=== PATIENT | female | born 1945 | race Caucasian/White ===

== ENCOUNTER 2017-06-24 17:22 | Inpatient (IN) | payer OTHER ==
[~2017-06-24] VITALS: Ht 157.5 cm; Wt 76.6 kg
[2017-06-24] MEDS ORDERED: SODIUM CHLORIDE 0.9% 1000ML 1,000 ML IV ONE (17:30)
[2017-06-24 17:48] LABS: HEMATOCRIT 38.7 % (37-47); HEMOGLOBIN 12.6 g/dL (12.0-16.0); MEAN CELL VOLUME 95.6 fL (80-100); MEAN CORPUSCULAR HEMOGLOBIN 31.1 pg (25-34); MEAN CORPUSCULAR HGB CONC 32.6 g/dl (32-36); MEAN PLATELET VOLUME 10.1 fL (7.4-10.4); PLATELET COUNT 168 K/uL (130-400); RED CELL DISTRIBUTION WIDTH CV 14.6 % (11.5-14.5); RED CELL DISTRIBUTION WIDTH SD 50.9 fL (36.4-46.3); WHITE BLOOD COUNT 9.88 K/uL (4.8-10.8)
--- NOTE | 2017-06-24 17:50 | EMERGENCY ROOM VISIT NOTE ---
History Report prepared by Shalini: Karol Morgan Under the Supervision of: Dr. Dewayne García D.O. First contact with patient: 17:24 Stated Complaint: FEVER/UTI/SEIZURE /[facility] History of Present Illness The patient is a 71 year old female who presents to the Emergency Room with complaints of persistent general fever since this morning. Per nursing staff, the patient had a fever of 101.8 Fahrenheit and her heart rate was 132 while at [facility]. She has not been given medication for the fever. Per , the patient was fine two weeks ago while on vacation in [place]. Per son, the patient used a wheelchair to prevent ambulating for too long. Per , the patient was lying in bed all day six days ago and when he was asking questions, she seemed confused. The patient was then taken to [facility] for evaluation of a possible stroke after a fall and confusion. She was then transferred to [facility] for further evaluation. While there, the patient was diagnosed with a UTI and possible complex partial seizures. She was treated with IV antibiotics. Per son, the patient was discharged to [facility] , though seemed more normal. She was able to maintain a conversation. The son then reports that he called the patient today and she did not seem to make any sense over the phone. The patient reports neck pain, though denies any abdominal pain or other pain. She notes weakness in both legs. She notes that she fell six days ago on her tailbone. She denies any similar symptoms in the past. Source of History: patient Onset: since this morning Position: other (general ) Symptom Intensity: 101.8 Fahrenheit Quality: other (fever) Timing: other (persistent) Associated Symptoms: + neck pain, + weakness (bilateral leg), No abdominal pain Note: Notes confusion. Review of Systems See HPI for pertinent positives & negatives. A total of 10 systems reviewed and were otherwise negative. Past Medical & Surgical Medical Problems: (1) Myocardial infarct Surgical Problems: (1) H/O: hysterectomy (2) History of cholecystectomy Family History Diabetes mellitus Social History Smoking Status: Never Smoker Smokeless Tobacco Use: No Alcohol Use: none Drug Use: none Marital Status: Housing Status: lives with significant other Occupation Status: unemployed Current/Historical Medications Scheduled Atorvastatin (Lipitor), 40 MG PO DAILY Cefpodoxime Proxetil (Cefpodoxime Proxetil), 100 MG PO Q12 Cholecalciferol (Vitamin D), 2,000 INTER.UNIT PO DAILY Clopidogrel (Plavix), 75 MG PO DAILY Cyanocobalamin (Vitamin B12), 1,000 MCG PO DAILY Docusate Sodium (Docusate Sodium), 100 MG PO BID Fluticasone Propionate (Nasal) (Flonase Allergy Relief), 2 SPRAYS MANDIE DAILY Gabapentin (Neurontin), 200 MG PO Q8 Insulin Aspart (Novolog), 1 DOSE SC ACHS Latanoprost (Xalatan 0.005% Oph Tri), 1 DROP OPB HS Levetiracetam (Keppra), 500 MG PO Q12 Levothyroxine Sodium (Levothyroxine Sodium), 50 MCG PO DAILY Magnesium Oxide (Mag-Ox), 400 MG PO BIDM Metformin Hcl (Glucophage), 1,000 MG PO BIDM Olanzapine (Zyprexa), 20 MG PO HS Pantoprazole (Protonix), 40 MG PO DAILY Pioglitazone (Actos), 45 MG PO DAILY Potassium Chloride (Potassium Chloride Er), 10 MEQ PO QAM Scheduled PRN Acetaminophen (Tylenol), 500 MG PO Q4H PRN for UNDECIDED Bisacodyl (Bisacodyl), 1 SUPP OR DAILY PRN for Constipation Furosemide (Lasix), 20 MG PO DAILY PRN for PRN Magnesium Hydroxide (Milk Of Magnesia), 30 ML PO DAILY PRN for Constipation Nitroglycerin (Nitrostat), 0.4 MG UT UD PRN for Chest Pain Polyethylene Glycol 3350 (Miralax), 17 GM PO DAILY PRN for Constipation Senna/Docusate Sod (Senokot S), 1 TAB PO DAILY PRN for Constipation Sodium Phosphate/Biphosphate (Fleet Enema), 1 EA OR DAILY PRN for Constipation [Ocular Lubricant], 1 DROP OPB TID PRN for Dry Eyes Allergies Coded Allergies: No Known Allergies (Unverified , 06/24/17) Physical Exam Vital Signs Date Time Temp Pulse Resp B/P (MAP) Pulse Ox O2 Delivery O2 Flow Rate FiO2 06/24/17 23:32 38.0 104 19 117/63 94 06/24/17 22:00 104 19 117/63 94 Nasal Cannula 2.0 06/24/17 21:15 108 21 114/64 94 Nasal Cannula 2.0 06/24/17 20:54 110 20 148/97 94 Nasal Cannula 2.0 06/24/17 19:17 116 23 148/97 90 Room Air 06/24/17 17:53 119 06/24/17 17:42 92 Room Air 06/24/17 17:30 38.0 120 18 132/75 94 Room Air Physical Exam GENERAL: Patient is looking around the room, non anxious appearing, slow to respond to questions, but follows commands. EYES: The conjunctivae are clear. The pupils are round and reactive. EARS, NOSE, MOUTH AND THROAT: The nose is without any evidence of any deformity. Mucous membranes are dry tongue is midline NECK: The neck is nontender and supple. RESPIRATORY: Scattered rhonchi throughout. CARDIOVASCULAR: Tachycardic rate and regular rhythm noted. No definite murmur noted to auscultation. GASTROINTESTINAL: The abdomen is soft. Bowel sounds are present in all quadrants. Abdomen is nontender PELVIS: The Pelvis is stable. No tenderness to palpation is noted. BACK: No midline tenderness or or step-off noted range of motion in flexion extension as well as rotation no signs of muscle spasm noted MUSCULOSKELETAL/EXTREMITIES: There is no evidence of gross deformity full range of motion is noted in the hips and shoulders SKIN: Pedal edema bilaterally, skin was warm and dry. NEUROLOGIC: Patient is slowly answers questions and follows commands. Strength is symmetric, but diminished bilaterally. Medical Decision & Procedures ER Provider Diagnostic Interpretation: Radiology results as stated below per my review and radiologist interpretation: HEAD WITHOUT CONTRAST (CT) CLINICAL HISTORY: 71 years-old Female presenting with possible seizure. TECHNIQUE: Multidetector CT imaging of the head was performed without the use of intravenous contrast. IV contrast: None. A dose lowering technique was used consistent with the principles of ALARA (as low as reasonably achievable). COMPARISON: None. CT DOSE (mGy.cm): The estimated cumulative dose is 638.56 mGycm. FINDINGS: Flight Test Data Acquisition Technician topogram: Unremarkable. Ventricles and sulci normal in size. Brain parenchyma normal in appearance with preserved hernandes-white differentiation. No mass effect or midline shift. No hemorrhage or acute territorial infarct. No extra-axial fluid collection. Paranasal sinuses and mastoid air cells clear. Calvarium intact. IMPRESSION: 1. No acute intracranial abnormality. Electronically signed by: Jose Manuel Cornejo M.D. 06/24/2017 6:36 PM Dictated Date/Time: 06/24/2017 6:34 PM CHEST ONE VIEW PORTABLE CLINICAL HISTORY: 71 years-old Female presenting with Sepsis. TECHNIQUE: Portable upright AP view of the chest was obtained. COMPARISON: None. FINDINGS: Atherosclerosis of the aortic arch. Cardiac silhouette normal in size. Mildly low lung volumes with hypoventilatory changes. Minimal bandlike opacities at the lung bases. No large pleural effusion or pneumothorax. Osseous structures normal. Cholecystectomy clips noted. IMPRESSION: 1. Mildly low lung volumes with hypoventilatory changes. No convincing evidence of a focal infiltrate to suggest pneumonia. Electronically signed by: Jose Manuel Cornejo M.D. 06/24/2017 5:53 PM Dictated Date/Time: 06/24/2017 5:52 PM Laboratory Results 06/24/17 17:08 Red Blood Count 4.05, Mean Corpuscular Volume 95.6, Mean Corpuscular Hemoglobin 31.1, Mean Corpuscular Hemoglobin Concent 32.6, Mean Platelet Volume 10.1, Neutrophils (%) (Auto) 85.6, Lymphocytes (%) (Auto) 7.4, Monocytes (%) (Auto) 6.7, Eosinophils (%) (Auto) 0.0, Basophils (%) (Auto) 0.1, Neutrophils # (Auto) 8.46, Lymphocytes # (Auto) 0.73, Monocytes # (Auto) 0.66, Eosinophils # (Auto) 0.00, Basophils # (Auto) 0.01 06/24/17 17:08 Test 06/24/17 17:08 06/24/17 18:15 06/24/17 19:32 White Blood Count 9.88 K/uL (4.8-10.8) Red Blood Count 4.05 M/uL (4.2-5.4) Hemoglobin 12.6 g/dL (12.0-16.0) Hematocrit 38.7 % (37-47) Mean Corpuscular Volume 95.6 fL (80-100) Mean Corpuscular Hemoglobin 31.1 pg (25-34) Mean Corpuscular Hemoglobin Concent 32.6 g/dl (32-36) Platelet Count 168 K/uL (130-400) Mean Platelet Volume 10.1 fL (7.4-10.4) Neutrophils (%) (Auto) 85.6 % Lymphocytes (%) (Auto) 7.4 % Monocytes (%) (Auto) 6.7 % Eosinophils (%) (Auto) 0.0 % Basophils (%) (Auto) 0.1 % Neutrophils # (Auto) 8.46 K/uL (1.4-6.5) Lymphocytes # (Auto) 0.73 K/uL (1.2-3.4) Monocytes # (Auto) 0.66 K/uL (0.11-0.59) Eosinophils # (Auto) 0.00 K/uL (0-0.5) Basophils # (Auto) 0.01 K/uL (0-0.2) RDW Standard Deviation 50.9 fL (36.4-46.3) RDW Coefficient of Variation 14.6 % (11.5-14.5) Immature Granulocyte % (Auto) 0.2 % Immature Granulocyte # (Auto) 0.02 K/uL (0.00-0.02) Red Blood Cell Morphology Unremarkable Erythrocyte Sedimentation Rate 41 mm/hr (0-21) Prothrombin Time 11.4 SECONDS (9.0-12.0) Prothromb Time International Ratio 1.1 (0.9-1.1) Activated Partial Thromboplast Time 25.4 SECONDS (21.0-31.0) Partial Thromboplastin Ratio 1.0 Anion Gap 10.0 mmol/L (3-11) Est Creatinine Clear Calc Drug Dose 37.6 ml/min Estimated GFR () 46.8 Estimated GFR (Non- 40.4 BUN/Creatinine Ratio 26.0 (10-20) Calcium Level 9.6 mg/dl (8.5-10.1) Phosphorus Level 2.4 mg/dl (2.5-4.9) Magnesium Level 1.7 mg/dl (1.8-2.4) Total Bilirubin 1.3 mg/dl (0.2-1) Aspartate Amino Transf (AST/SGOT) 103 U/L (15-37) Alanine Aminotransferase (ALT/SGPT) 72 U/L (12-78) Alkaline Phosphatase 211 U/L (45-117) Total Creatine Kinase 174 U/L (26-192) Creatine Kinase MB 2.8 ng/ml (0.5-3.6) Creatine Kinase MB Ratio 1.6 (0-3.0) Troponin I < 0.015 ng/ml (0-0.045) C-Reactive Protein 4.24 mg/dl (0-0.29) Pro-B-Type Natriuretic Peptide 271 pg/ml (0-900) Total Protein 8.5 gm/dl (6.4-8.2) Albumin 3.7 gm/dl (3.4-5.0) Globulin 4.8 gm/dl (2.5-4.0) Albumin/Globulin Ratio 0.8 (0.9-2) Lipase 93 U/L (73-393) Thyroid Stimulating Hormone (TSH) 0.488 uIu/ml (0.300-4.500) Thyroxine (T4) 9.7 mcg/dl (4.5-10.9) Prolactin 22.93 ng/mL Urine Color YELLOW Urine Appearance CLEAR (CLEAR) Urine pH 5.0 (4.5-7.5) Urine Specific [place] 1.019 (1.000-1.030) Urine Protein NEG (NEG) Urine Glucose (UA) NEG (NEG) Urine Ketones NEG (NEG) Urine Occult Blood NEG (NEG) Urine Nitrite NEG (NEG) Urine Bilirubin NEG (NEG) Urine Urobilinogen NEG (NEG) Urine Leukocyte Esterase NEG (NEG) Urine WBC (Auto) 0 /hpf (0-5) Urine RBC (Auto) 0-4 /hpf (0-4) Urine Hyaline Casts (Auto) 0 /lpf (0-5) Urine Epithelial Cells (Auto) 0-5 /lpf (0-5) Urine Bacteria (Auto) NEG (NEG) Venous Blood pH 7.45 (7.36-7.41) Venous Blood Partial Pressure CO2 38 mmHg (38.0-50.0) Venous Blood Partial Pressure O2 32 mmHg Venous Blood HCO3 25 mmol/L Venous Blood Oxygen Saturation < 60.0 % Venous Blood Base Excess 1.5 mEq/L Laboratory results per my review. Medications Administered Medications (Trade) Dose Ordered Sig/Oneyda Route Start Time Stop Time Status Last Admin Dose Admin Sodium Chloride 1,000 ml @ 999 mls/hr Q1H1M ONCE IV 06/24/17 17:30 06/24/17 18:30 DC 06/24/17 18:16 999 MLS/HR Magnesium Sulfate (Magnesium Sulfate) 2 gm NOW STAT IV 06/24/17 18:35 06/24/17 18:36 DC 06/24/17 20:04 2 GM ECG Per My Interpretation Indication: other (fever) Rate (beats per minute): 121 Rhythm: sinus tachycardia Findings: Q waves (Inferior), no ectopy (no PVC) Comparison ECG Date: no prior available ED Course 1730: The patient was evaluated in room A3. A complete history and physical examination were performed. 1729: Ordered NSS 1,000 ml @ 999 mls/hr IV 1834: Ordered Magnesium Sulfate 2 gm IV 1920: I spoke with Dr. Heredia, [facility] hospitalist. We discussed the patient's case. The patient will be evaluated by the [facility] for further management. 1924: I reassessed the patient at this time. I discussed the results and treatment plan with the patient and her family. I answered all pertaining questions that they had. They expressed understanding and verbalized agreement. The patient will be further evaluated. Medical Decision Prior records/ancillary studies reviewed. Triage Nursing notes reviewed. The patient's history was concerning for fever. Differential diagnosis: Etiologies such as viral syndrome, otitis, pharyngitis, pneumonia, influenza, meningitis, urinary tract infection, sepsis, bacteremia, as well as others were entertained. The patient is a 71-year-old female who presented to the emergency department for an evaluation of altered mental status. Additional history is obtained from the patient's family members. The patient is at a rehab after she was discharged from a [facility]. The patient was initially seen at [facility] and transferred to [place] for possible seizure. The patient's been experiencing worsening weakness. She was sent to the emergency department this evening for fever and altered mental status and possible seizure. The patient's family members give most of the history. They do state that the patient was able to hold a conversation and ambulate with some difficulty earlier but this appears to be a significant change from her baseline. I discussed patient's laboratory and radiographic studies with her family. She was treated with IV fluids and IV magnesium. Because of the degree of her symptoms I discussed her case with the on-call [facility] hospitalist. They have agreed to evaluate the patient in the emergency department for further management and disposition. Medication Reconcilliation Current Medication List: was personally reviewed by me Blood Pressure Screening Patient's blood pressure: Elevated blood pressure referred to hospitalist Consults Time Called: 1920 Consulting Physician[facility] I spoke with [facility] hospitalist. We discussed the patient's case. The patient will be evaluated by the [facility] for further management. Impression Primary Impression: Altered mental status Additional Impressions: Seizure Fever Weakness Hypomagnesemia Scribe Attestation The scribe's documentation has been prepared under my direction and personally reviewed by me in its entirety. I confirm that the note above accurately reflects all work, treatment, procedures, and medical decision making performed by me. Departure Information Dispostion Being Evaluated By Hospitalist Problem Qualifiers Primary Impression: Altered mental status Altered mental status type: unspecified Qualified Codes: R41.82 - Altered mental status, unspecified Additional Impressions: Fever Fever type: unspecified Qualified Codes: R50.9 - Fever, unspecified
--- NOTE | 2017-06-24 17:55 | DIAGNOSTIC IMAGING REPORT ---
CHEST ONE VIEW PORTABLE CLINICAL HISTORY: 71 years-old Female presenting with Sepsis. TECHNIQUE: Portable upright AP view of the chest was obtained. COMPARISON: None. FINDINGS: Atherosclerosis of the aortic arch. Cardiac silhouette normal in size. Mildly low lung volumes with hypoventilatory changes. Minimal bandlike opacities at the lung bases. No large pleural effusion or pneumothorax. Osseous structures normal. Cholecystectomy clips noted. IMPRESSION: 1. Mildly low lung volumes with hypoventilatory changes. No convincing evidence of a focal infiltrate to suggest pneumonia. Electronically signed by: Jose Manuel Cornejo M.D. 06/24/2017 5:53 PM Dictated Date/Time: 06/24/2017 5:52 PM
[2017-06-24 18:09] LABS: INR 1.1 (0.9-1.1); PTT PATIENT 25.4 SECONDS (21.0-31.0)
[2017-06-24 18:16] LABS: ALBUMIN 3.7 gm/dl (3.4-5.0); ALT/SGPT 72 U/L (12-78); AST/SGOT 103 U/L (15-37); BLOOD UREA NITROGEN 35 mg/dl (7-18); CALCIUM 9.6 mg/dl (8.5-10.1); CARBON DIOXIDE 23 mmol/L (21-32); CREATININE 1.33 mg/dl (0.60-1.20); GLUCOSE 169 mg/dl (70-99); LIPASE 93 U/L (73-393); POTASSIUM 3.6 mmol/L (3.5-5.1); SODIUM 137 mmol/L (136-145)
[2017-06-24 18:22] LABS: ALKALINE PHOSPHATASE 211 U/L (45-117); CKMB 2.8 ng/ml (0.5-3.6); PHOSPHORUS 2.4 mg/dl (2.5-4.9); TOTAL PROTEIN 8.5 gm/dl (6.4-8.2)
[2017-06-24 18:34] LABS: BASO % 0.1 %; BASO ABS # 0.01 K/uL (0-0.2); IG# 0.02 K/uL (0.00-0.02); LYMPH % 7.4 %; LYMPH ABS # 0.73 K/uL (1.2-3.4); MONO % 6.7 %; MONO ABS # 0.66 K/uL (0.11-0.59); NEUT % 85.6 %; NEUT ABS # 8.46 K/uL (1.4-6.5)
[2017-06-24] MEDS ORDERED: MAGNESIUM SULFATE 1GM / D5W 1 GM BAG IV STA (18:35)
--- NOTE | 2017-06-24 18:37 | DIAGNOSTIC IMAGING REPORT ---
HEAD WITHOUT CONTRAST (CT) CLINICAL HISTORY: 71 years-old Female presenting with possible seizure. TECHNIQUE: Multidetector CT imaging of the head was performed without the use of intravenous contrast. IV contrast: None. A dose lowering technique was used consistent with the principles of ALARA (as low as reasonably achievable). COMPARISON: None. CT DOSE (mGy.cm): The estimated cumulative dose is 638.56 mGycm. FINDINGS: Brush Worker topogram: Unremarkable. Ventricles and sulci normal in size. Brain parenchyma normal in appearance with preserved hernandes-white differentiation. No mass effect or midline shift. No hemorrhage or acute territorial infarct. No extra-axial fluid collection. Paranasal sinuses and mastoid air cells clear. Calvarium intact. IMPRESSION: 1. No acute intracranial abnormality. Electronically signed by: Jose Manuel Cornejo M.D. 06/24/2017 6:36 PM Dictated Date/Time: 06/24/2017 6:34 PM
[2017-06-24] MEDS ORDERED: FURO-85 PO (19:34)
[2017-06-24] MEDS ORDERED: LATA0.009 OPB (19:34)
[2017-06-24] MEDS ORDERED: LEVO50TA6 PO (19:34)
[2017-06-24] MEDS ORDERED: LEVE500T13 PO (19:34)
[2017-06-24] MEDS ORDERED: MAGN400T6 PO (19:34)
[2017-06-24] MEDS ORDERED: GABA100C13 PO (19:34)
[2017-06-24] MEDS ORDERED: CLOP1TAB15 PO (19:34)
[2017-06-24] MEDS ORDERED: CYAN100020 PO (19:34)
[2017-06-24] MEDS ORDERED: FLUT0.15 NAE (19:34)
[2017-06-24] MEDS ORDERED: ATOR-24 PO (19:34)
[2017-06-24] MEDS ORDERED: CHOL20009 PO (19:34)
[2017-06-24] MEDS ORDERED: ACT15 PO (19:34)
[2017-06-24] MEDS ORDERED: METF-384 PO (19:41)
[2017-06-24] MEDS ORDERED: PANT40TA PO (19:41)
[2017-06-24] MEDS ORDERED: OLAN1TAB9 PO (19:41)
[2017-06-24] MEDS ORDERED: NTRGSL/4 UT (19:41)
[2017-06-24] MEDS ORDERED: DOCU100C31 PO (19:44)
[2017-06-24] MEDS ORDERED: POTA-74 PO (19:44)
[2017-06-24] MEDS ORDERED: MOML PO (19:44)
[2017-06-24] MEDS ORDERED: BISA10SU5 PR (19:44)
[2017-06-24] MEDS ORDERED: SODIENE PR (19:50)
[2017-06-24] MEDS ORDERED: POLY335019 PO (19:50)
[2017-06-24] MEDS ORDERED: SENN-65 PO (19:50)
[2017-06-24] MEDS ORDERED: CEFP100T7 PO (19:50)
[2017-06-24] MEDS ORDERED: ACET-1256 PO (19:50)
[2017-06-24] MEDS ORDERED: OCULAR LUBRICANT OPB (19:50)
[2017-06-24] MEDS ORDERED: NVLG SC (19:55)
[2017-06-24] MEDS ORDERED: DOCUSATE SODIUM 100 MG CAP PO PRN (21:00)
--- NOTE | 2017-06-24 21:48 | History and Physical ---
History & Physical Date & Time of Service: Jun 24, 2017 at 20:52 Chief Complaint: Fever/Uti/Seizure /[facility] Primary Care Physician: No Doctor, Assigned History of Present Illness Source: patient, family History obtained from family. Patient is a 71yo C female presenting with altered mental status. The patient was found to be extremely sleepy on March and March as well as having gait instability/stumbling with fall resulting in a bruised tailbone, slurred and stuttering speech which prompted family to bring her to [facility] on Wednesday. At [facility] she was also experiencing diplopia and AMS, they told her she had a stroke but sent her to [facility] on Wednesday for additional workup. At [facility] they told her that she, in fact, did not have a CVA. Per family they did a lot of testing to include MRI, LP, carotid ultrasound, Neurology consultation and ultimately diagnosed her with complex partial seizures and possible dementia. They started her on Keppra and discharged her to [facility] on . She was visited by her son this afternoon and he noted slurring of speech, increased sleepiness, poor balance. There has been a couple episodes where the patient stares into space and is unresponsive for a few moments. This prompted them to bring her to the ER. Patient presently denies any complaints. Denies pain. LP results and ApoE genotype pending from OSH ER Course: 1L NSS 2gm Magnesium Past Medical/Surgical History 1. Diabetes 2. CAD s/p stent x 3 (1 in 2005, 2 in 2011) 3. Hyperlipidemia 4. Hypothyroidism 5. Bipolar disorder 6. Diabetic neuropathy 7. Cognitive decline x 5 years 8. ?Complex partial seizure disorder - newly diagnosed Past Surgical History: Cholecystectomy Hysterectomy Cardiac stents x 3 Family History Diabetes Heart disease Dementia Cancer Social History Smoking Status: Never Smoker Smokeless Tobacco Use: No Alcohol Use: none Drug Use: cocaine Marital Status: Housing status: lives with significant other Occupational Status: retired Allergies Coded Allergies: No Known Allergies (Unverified , 06/24/17) Home Medications Scheduled Atorvastatin (Lipitor), 40 MG PO DAILY Cefpodoxime Proxetil (Cefpodoxime Proxetil), 100 MG PO Q12 Cholecalciferol (Vitamin D), 2,000 INTER.UNIT PO DAILY Clopidogrel (Plavix), 75 MG PO DAILY Cyanocobalamin (Vitamin B12), 1,000 MCG PO DAILY Docusate Sodium (Docusate Sodium), 100 MG PO BID Fluticasone Propionate (Nasal) (Flonase Allergy Relief), 2 SPRAYS MANDIE DAILY Gabapentin (Neurontin), 200 MG PO Q8 Insulin Aspart (Novolog), 1 DOSE SC ACHS Latanoprost (Xalatan 0.005% Oph Tri), 1 DROP OPB HS Levetiracetam (Keppra), 500 MG PO Q12 Levothyroxine Sodium (Levothyroxine Sodium), 50 MCG PO DAILY Magnesium Oxide (Mag-Ox), 400 MG PO BIDM Metformin Hcl (Glucophage), 1,000 MG PO BIDM Olanzapine (Zyprexa), 20 MG PO HS Pantoprazole (Protonix), 40 MG PO DAILY Pioglitazone (Actos), 45 MG PO DAILY Potassium Chloride (Potassium Chloride Er), 10 MEQ PO QAM Scheduled PRN Acetaminophen (Tylenol), 500 MG PO Q4H PRN for UNDECIDED Bisacodyl (Bisacodyl), 1 SUPP GA DAILY PRN for Constipation Furosemide (Lasix), 20 MG PO DAILY PRN for PRN Magnesium Hydroxide (Milk Of Magnesia), 30 ML PO DAILY PRN for Constipation Nitroglycerin (Nitrostat), 0.4 MG UT UD PRN for Chest Pain Polyethylene Glycol 3350 (Miralax), 17 GM PO DAILY PRN for Constipation Senna/Docusate Sod (Senokot S), 1 TAB PO DAILY PRN for Constipation Sodium Phosphate/Biphosphate (Fleet Enema), 1 EA GA DAILY PRN for Constipation [Ocular Lubricant], 1 DROP OPB TID PRN for Dry Eyes Review of Systems Constitutional: + fever, + chills, + weakness, + fatigue Eyes: No worsening of vision, No redness ENT: No hearing loss, No sore throat, No trouble swallowing Respiratory: No cough, No sputum, No wheezing, No shortness of breath Cardiovascular: No chest pain, No orthopnea, No edema Abdomen: No pain, No nausea, No vomiting, No diarrhea, No constipation Musculoskeletal: No muscle pain Genitourinary - Female: No dysuria, No urinary frequency, No urinary urgency Neurologic: + memory loss, + weakness, + balance problems, No numbness/tingling Psychiatric: + depression symptoms Physical Exam Vital Signs Date Time Temp Pulse Resp B/P (MAP) Pulse Ox O2 Delivery O2 Flow Rate FiO2 06/24/17 19:17 116 23 148/97 90 Room Air 06/24/17 17:53 119 06/24/17 17:42 92 Room Air 06/24/17 17:30 38.0 120 18 132/75 94 Room Air General: obese C female resting comfortably in bed, NAD, somnolent but arousable, oriented x 4 with prompting Skin: warm, dry, intact, no rashes or lesions, bruise on head and ear HEENT: NC/AT, bruise on head, PERRL, limited upward gaze, anicteric sclera, conjunctiva without injection, patent nares, dry oral mucosa, no oropharyngeal lesions, neck supple, no JVD, no thyromegaly, no palpable cervical LAD Heart: +S1/S2, regular, no m/r/g Lungs: equal air entry bilaterally, no respiratory distress, +crackles in right lung base with dullness to percussion, no rhonchi or wheezes Abdomen: obese, soft, NT/ND, no masses or organomegaly Extremities: 1+ nonpitting edema of bilateral LE, palpable distal pulses in all extremities, warm Neuro: Somnolent, arousable, AA&O x 4, CN grossly intact with exception of limited upward gaze and baseline hearing loss, normal bulk and tone, MS equal 4+ /5 in UE and LEs bilaterally with RUE only slightly weaker than left, no pronator drift, intact finger to nose, gait not assessed at this time Diagnostics Laboratory Results Results Past 24 Hours Test 06/24/17 17:08 06/24/17 18:15 06/24/17 19:32 Range/Units White Blood Count 9.88 4.8-10.8 K/uL Red Blood Count 4.05 4.2-5.4 M/uL Hemoglobin 12.6 12.0-16.0 g/dL Hematocrit 38.7 37-47 % Mean Corpuscular Volume 95.6 80-100 fL Mean Corpuscular Hemoglobin 31.1 25-34 pg Mean Corpuscular Hemoglobin Concent 32.6 32-36 g/dl Platelet Count 168 130-400 K/uL Mean Platelet Volume 10.1 7.4-10.4 fL Neutrophils (%) (Auto) 85.6 % Lymphocytes (%) (Auto) 7.4 % Monocytes (%) (Auto) 6.7 % Eosinophils (%) (Auto) 0.0 % Basophils (%) (Auto) 0.1 % Neutrophils # (Auto) 8.46 1.4-6.5 K/uL Lymphocytes # (Auto) 0.73 1.2-3.4 K/uL Monocytes # (Auto) 0.66 0.11-0.59 K/uL Eosinophils # (Auto) 0.00 0-0.5 K/uL Basophils # (Auto) 0.01 0-0.2 K/uL RDW Standard Deviation 50.9 36.4-46.3 fL RDW Coefficient of Variation 14.6 11.5-14.5 % Immature Granulocyte % (Auto) 0.2 % Immature Granulocyte # (Auto) 0.02 0.00-0.02 K/uL Red Blood Cell Morphology Unremarkable Erythrocyte Sedimentation Rate 41 0-21 mm/hr Prothrombin Time 11.4 9.0-12.0 SECONDS Prothromb Time International Ratio 1.1 0.9-1.1 Activated Partial Thromboplast Time 25.4 21.0-31.0 SECONDS Partial Thromboplastin Ratio 1.0 Sodium Level 137 136-145 mmol/L Potassium Level 3.6 3.5-5.1 mmol/L Chloride Level 104 98-107 mmol/L Carbon Dioxide Level 23 21-32 mmol/L Anion Gap 10.0 3-11 mmol/L Blood Urea Nitrogen 35 7-18 mg/dl Creatinine 1.33 0.60-1.20 mg/dl Est Creatinine Clear Calc Drug Dose 37.6 ml/min Estimated GFR () 46.8 Estimated GFR (Non- 40.4 BUN/Creatinine Ratio 26.0 10-20 Random Glucose 169 70-99 mg/dl Calcium Level 9.6 8.5-10.1 mg/dl Phosphorus Level 2.4 2.5-4.9 mg/dl Magnesium Level 1.7 1.8-2.4 mg/dl Total Bilirubin 1.3 0.2-1 mg/dl Aspartate Amino Transf (AST/SGOT) 103 15-37 U/L Alanine Aminotransferase (ALT/SGPT) 72 12-78 U/L Alkaline Phosphatase 211 45-117 U/L Total Creatine Kinase 174 26-192 U/L Creatine Kinase MB 2.8 0.5-3.6 ng/ml Creatine Kinase MB Ratio 1.6 0-3.0 Troponin I < 0.015 0-0.045 ng/ml C-Reactive Protein 4.24 0-0.29 mg/dl Pro-B-Type Natriuretic Peptide 271 0-900 pg/ml Total Protein 8.5 6.4-8.2 gm/dl Albumin 3.7 3.4-5.0 gm/dl Globulin 4.8 2.5-4.0 gm/dl Albumin/Globulin Ratio 0.8 0.9-2 Lipase 93 73-393 U/L Prolactin 22.93 ng/mL Urine Color YELLOW Urine Appearance CLEAR CLEAR Urine pH 5.0 4.5-7.5 Urine Specific Thomas 1.019 1.000-1.030 Urine Protein NEG NEG Urine Glucose (UA) NEG NEG Urine Ketones NEG NEG Urine Occult Blood NEG NEG Urine Nitrite NEG NEG Urine Bilirubin NEG NEG Urine Urobilinogen NEG NEG Urine Leukocyte Esterase NEG NEG Urine WBC (Auto) 0 0-5 /hpf Urine RBC (Auto) 0-4 0-4 /hpf Urine Hyaline Casts (Auto) 0 0-5 /lpf Urine Epithelial Cells (Auto) 0-5 0-5 /lpf Urine Bacteria (Auto) NEG NEG Venous Blood pH 7.45 7.36-7.41 Venous Blood Partial Pressure CO2 38 38.0-50.0 mmHg Venous Blood Partial Pressure O2 32 mmHg Venous Blood HCO3 25 mmol/L Venous Blood Oxygen Saturation < 60.0 % Venous Blood Base Excess 1.5 mEq/L Microbiology Results 06/24/17 Blood Culture, Received Pending 06/24/17 Blood Culture, Received Pending Diagnostic Radiology [~ rep ct add3]] CHEST ONE VIEW PORTABLE CLINICAL HISTORY: 71 years-old Female presenting with Sepsis. TECHNIQUE: Portable upright AP view of the chest was obtained. COMPARISON: None. FINDINGS: Atherosclerosis of the aortic arch. Cardiac silhouette normal in size. Mildly low lung volumes with hypoventilatory changes. Minimal bandlike opacities at the lung bases. No large pleural effusion or pneumothorax. Osseous structures normal. Cholecystectomy clips noted. IMPRESSION: 1. Mildly low lung volumes with hypoventilatory changes. No convincing evidence of a focal infiltrate to suggest pneumonia. HEAD WITHOUT CONTRAST (CT) CLINICAL HISTORY: 71 years-old Female presenting with possible seizure. TECHNIQUE: Multidetector CT imaging of the head was performed without the use of intravenous contrast. IV contrast: None. A dose lowering technique was used consistent with the principles of ALARA (as low as reasonably achievable). COMPARISON: None. CT DOSE (mGy.cm): The estimated cumulative dose is 638.56 mGycm. FINDINGS: Cash Reconciliation Specialist topogram: Unremarkable. Ventricles and sulci normal in size. Brain parenchyma normal in appearance with preserved hernandes-white differentiation. No mass effect or midline shift. No hemorrhage or acute territorial infarct. No extra-axial fluid collection. Paranasal sinuses and mastoid air cells clear. Calvarium intact. IMPRESSION: 1. No acute intracranial abnormality. Impression Assessment and Plan 71yo C female with history of DM, CAD, Hypothyridism, possible Dementia at baseline, newly diagnosed seizure disorder presenting with worsening mental status. Patient had a prolonged hospital stay at [facility] with thorough workup for CVA which was negative. She was diagnosed with complex partial seizures, possible dementia and started on Keppra at that time. She returns to the hospital today with worsening mental status, sleepiness and confusion. 1. Altered mental status - uncertain of baseline. The family endorses that she has had a progressive decline over the last 5 years which started with the of her son. Family states she is functional at baseline, conversant and independent. CT head negative today. Etiology unclear - progressive decline vs acute illness. Patient is febrile and tachycardic with rales on right lung base, concern for possible PNA -Monitor on telemetry -Maintain O2 via NC to keep SaO2 > 94% -Check TSH and T4 -Check urine toxicology -Check UA and culture -Monitor electrolytes and replete as needed -Avoid sedating medications -CXR - PA and lateral to further assess right lung base. -Will start empiric antibiotic coverage for possible PNA (Ceftriaxone/ Azithromycin)- will broaden to HAP coverage if CXR is positive for infiltrate 2. DM - blood sugars presently 169 - Lantus and novolog sliding scale for targed blood sugar <180 -Continue Neurontin for diabetic neuropathy -Diabetic diet as tolerated with aspiration precautions 3. CAD - s/p IA with stent x 3. No evidence of ischemia at present. -Continue Lipitor at home dose 4. Newly diagnosed seizures - -Patient on Keppra 500mg po BID, recently started -Continue this dosage - consider increasing dosage in 1-2 weeks -Neurology consultation 5. Hyperlipidemia - Stable. Continue statin 6. Hypothyroidism - will check TSH/T4. Continue synthroid 7. Bipolar disorder - stable. Continue Zyprexa qHS at home dose 8. F/E/N - NSS at 125mL/hr x 2 liters. Monitor electrolytes and replete as needed. Diabetic diet as tolerated with aspiration precautions 9. DVT prophylaxis with Lovenox 10. Code - Full per discussion with family. Rolando Dawson is POA - 11. Dispo - admit to telemetry Resuscitation Status Full VTE Prophylaxis Will order VTE Prophylaxis: Yes
[2017-06-24] MEDS ORDERED: GLUCOSE 10 TABS/TUBE PO PRN (22:45)
[2017-06-24] MEDS ORDERED: DEXTROSE 50% 50 ML SYR IV PRN (22:45)
[2017-06-24] MEDS ORDERED: GLUCAGON FOR INJ 1 MG VIAL SQ PRN (22:45)
[2017-06-24] MEDS ORDERED: GLUCOSE 40% GEL 15 GM TUBE PO PRN (22:45)
[2017-06-25] VITALS (7 sets, daily range): BP systolic 104–127; BP diastolic 70–81; PULSE 101–116; TEMP 36.6–38.3; O2SAT 92–94; Ht 157.5 cm; Wt 76.6 kg
[2017-06-25] MEDS ORDERED: CEFTRIAXONE SOD INJ 1 GM in DEXTROSE 5% ADD-VANTAGE 50ML 50 ML IV SCH (01:00)
[2017-06-25] MEDS: ACETAMINOPHEN 325 MG TAB PO PRN (01:27)
[2017-06-25] MEDS: LEVETIRACETAM 500 MG TAB PO SCH ×3 (01:28→20:46)
[2017-06-25] MEDS: HEPARIN SOD 5000 UNIT/0.5 ML CARP SQ SCH ×4 (01:29→20:45)
[2017-06-25] MEDS: INSULIN ASPART 100 UNITS/ML 3 ML PEN SC SCH ×5 (01:29→20:45)
[2017-06-25] MEDS: GABAPENTIN 100 MG CAP PO SCH ×4 (01:31→20:44)
[2017-06-25] MEDS: OLANZAPINE 10 MG TAB PO SCH ×2 (01:31→20:47)
[2017-06-25] MEDS: LATANOPROST 0.005% OP SOLN 2.5 ML BTL OPB SCH ×2 (01:32→20:44)
[2017-06-25] MEDS ORDERED: AZITHROMYCIN IV 500 MG in DEXTROSE 5% 250ML 250 ML IV SCH (02:00)
--- NOTE | 2017-06-25 06:25 | DIAGNOSTIC IMAGING REPORT ---
CHEST 2 VIEWS ROUTINE CLINICAL HISTORY: crackles right base dyspnea COMPARISON STUDY: 06/24/2017 5:40 PM FINDINGS: IMPRESSION: Negative chest. The above report was generated using voice recognition software. It may contain grammatical, syntax or spelling errors. Electronically signed by: Chase Lawson M.D. 06/25/2017 6:24 AM Dictated Date/Time: 06/25/2017 6:23 AM
[2017-06-25] MEDS: LEVOTHYROXINE 50 MCG TAB PO SCH (06:27)
[2017-06-25] MEDS: CLOPIDOGREL BISULFATE 75 MG TAB PO SCH (07:59)
[2017-06-25] MEDS: ATORVASTATIN 40 MG TAB PO SCH (07:59)
[2017-06-25] MEDS: FLUTICASONE PROPIONATE NA SPR 16 GM BTL NAE SCH (08:00)
[2017-06-25 09:04] LABS: PHOSPHORUS 2.4 mg/dl (2.5-4.9)
--- NOTE | 2017-06-25 09:14 | Neurology Consultation ---
Neurology Consultation Date of Consultation: Jun 25, 2017. Attending Physician: Adonay Higgins MD, PhD Primary Care Physician: No Doctor, Assigned Reason for Consultation: Consultation for dementia and altered mental status History of Present Illness Source: patient, hospital records This is a 71-year-old female who presented with altered mental status. Reportedly couple weeks ago she was seen at [facility] and was transferred to [facility] due to acute confusion. She was treated for a UTI and possible focal seizures with though I do not know if there is any strong evidence for this. She was placed on Keppra. I do not have any records from outside hospital to review. Patient was discharged to [facility] and reportedly seemed to improve in her mentation. On the day of presentation she seemed acutely confused again. She was noted by nursing staff to have a fever of 101 and elevated heart rate. Reportedly at [facility] as part of her workup she did have an MRI which ruled out stroke, lumbar puncture, and ultrasound of the carotids. I do not have records or results of the studies. On presentation here the patient had temperature of 38C. Labs are notable for creatinine of 1.3 and increased BUN suggesting some possible mild dehydration, TSH was normal, magnesium and phosphorus are pending. UA normal CT of the head is unremarkable. Images and radiology report were reviewed by myself and I agree. Overall it does not sound like patient has had any convincing episodes or highly specific episodes for seizures at this time. No new focal neurological deficits. Patient denies any changes with her vision or speech. Denies any new numbness or weakness. She does report feel like she has been having fevers for the last couple of days. She also reports some trouble breathing or feeling like there is a frog stuck in her throat. No chest pain. No abnormal headaches. Past Medical/Surgical History Medical Problems: (1) Altered mental status Status: Acute (2) Fever Status: Acute (3) Seizure Status: Acute (4) Weakness Status: Acute Diabetes with neuropathy CAD status post stents Dyslipidemia Hypothyroid Bipolar Family reports cognitive decline over 5 years without any specific workup except for her acute hospitalizations recently Uncertain diagnosis of focal seizures with last hospitalization at outside hospital, recently placed on Keppra in the last couple weeks Family History Family history of diabetes, CAD, dementia, cancer Social History Patient is normally independent her activities of daily living at baseline per previous report. Smokeless Tobacco Use: No Alcohol Use: none Drug Use: cocaine Marital Status: Housing Status: lives with significant other Occupation Status: retired Allergies Coded Allergies: No Known Allergies (Unverified , 06/24/17) Current Inpatient Medications Current Inpatient Medications Medications (Trade) Dose Ordered Sig/Oneyda Route Start Time Stop Time Status Last Admin Dose Admin Atorvastatin Calcium (Lipitor Tab) 40 mg DAILY PO 06/25/17 09:00 07/25/17 08:59 06/25/17 07:59 40 MG Clopidogrel Bisulfate (plAVix TAB) 75 mg DAILY PO 06/25/17 09:00 07/25/17 08:59 06/25/17 07:59 75 MG Docusate Sodium (coLACE CAP) 100 mg BID PRN PO 06/24/17 21:00 07/24/17 20:59 Fluticasone Propionate (Flonase Nasal [place]) 2 sprays DAILY MANDIE 06/25/17 09:00 07/25/17 08:59 06/25/17 08:00 2 SPRAYS Gabapentin (Neurontin Cap) 200 mg Q8 PO 06/24/17 22:00 07/24/17 21:59 06/25/17 01:31 200 MG Insulin Aspart (novoLOG ASPART) ACHS SC 06/24/17 21:00 07/24/17 20:59 06/25/17 08:08 6 UNITS Latanoprost (Xalatan Oph Soln) 2 drops HS OPB 06/24/17 21:00 07/24/17 20:59 06/25/17 01:32 2 DROPS Levetiracetam (Keppra Tab) 500 mg Q12 PO 06/24/17 21:00 07/24/17 20:59 06/25/17 07:57 500 MG Levothyroxine Sodium (Synthroid Tab) 50 mcg DAILYBB PO 06/25/17 06:30 07/25/17 06:59 Olanzapine (Zyprexa Tab) 20 mg HS PO 06/24/17 21:00 07/24/17 20:59 06/25/17 01:31 20 MG Heparin Sodium (Porcine) (Heparin Sq 5000 Unit/0.5ml) 5,000 unit Q8H SQ 06/24/17 22:00 07/24/17 21:59 06/25/17 06:17 5,000 UNIT Acetaminophen (Tylenol Tab) 650 mg Q4H PRN PO 06/24/17 21:00 07/24/17 20:59 06/25/17 01:27 650 MG Azithromycin 500 mg/Dextrose 255 ml @ 125 mls/hr Q24H IV 06/25/17 02:00 07/02/17 01:59 06/25/17 01:43 125 MLS/HR Ceftriaxone Sodium 1 gm/ Dextrose 50 ml @ 100 mls/hr Q24H IV 06/25/17 01:00 07/02/17 00:59 06/25/17 01:13 100 MLS/HR Glucose (Glucose 40% Gel) 15-30 GRAMS 15 GRAMS... UD PRN PO 06/24/17 22:45 07/24/17 22:44 Glucose (Glucose Chew Tab) 4-8 Tablets 4 Tabl... UD PRN PO 06/24/17 22:45 07/24/17 22:44 Dextrose (Dextrose 50% 50ML Syringe) 25-50ML OF 50% DW IV FOR... UD PRN IV 06/24/17 22:45 07/24/17 22:44 Glucagon (Glucagon Inj) 1 mg UD PRN SQ 06/24/17 22:45 07/24/17 22:44 Review of Systems Complete review of systems otherwise negative except for the above-noted in HPI Physical Exam Vital Signs (Past 24 Hrs): Date Time Temp Pulse Resp B/P (MAP) Pulse Ox O2 Delivery O2 Flow Rate FiO2 06/25/17 06:34 37.2 113 18 106/70 (82) 93 Nasal Cannula 2.0 06/25/17 05:13 36.6 101 20 104/71 (82) 92 06/25/17 04:00 Nasal Cannula 2.0 06/25/17 02:23 37.3 06/25/17 00:45 38.3 110 18 127/81 94 Nasal Cannula 2.0 06/24/17 23:32 38.0 104 19 117/63 94 06/24/17 22:00 104 19 117/63 94 Nasal Cannula 2.0 06/24/17 21:15 108 21 114/64 94 Nasal Cannula 2.0 06/24/17 20:54 110 20 148/97 94 Nasal Cannula 2.0 06/24/17 19:17 116 23 148/97 90 Room Air 06/24/17 17:53 119 06/24/17 17:42 92 Room Air 06/24/17 17:30 38.0 120 18 132/75 94 Room Air Gen.: Patient is lethargic but oriented, in no acute distress lying in bed Heart: Regular rate and rhythm Extremities: No gross deformities or rashes noted Neurological examination: Mental status: Patient is alert and oriented to person place and time. Able to give some of her own history. Attention & concentration appropriate for the situation. Remote and recent memory seem intact, although the patient was lethargic and difficult to get detailed history Speech is fluent without any dysarthria or aphasia noted Cranial nerves: Funduscopic examination was difficult to visualize. Pupils equally round and reactive to light. Extraocular muscles intact without nystagmus. No facial asymmetry noted. Facial sensation intact. Tongue midline. Good palatal elevation. Good shoulder shrug bilaterally. Hearing grossly intact voice. Strength: 5/5 both proximal and distal in all extremities .Tone is normal. Sensation: Grossly intact to light touch in all extremities Deep tendon reflexes: +1 in bilateral biceps and patellar. Toes are downgoing to plantar stimulation bilaterally Coordination: Patient has good finger to nose without dysmetria. Station within the bed is normal. Laboratory Results Past 24 Hours: 06/24/17 17:08 Red Blood Count 4.05, Mean Corpuscular Volume 95.6, Mean Corpuscular Hemoglobin 31.1, Mean Corpuscular Hemoglobin Concent 32.6, Mean Platelet Volume 10.1, Neutrophils (%) (Auto) 85.6, Lymphocytes (%) (Auto) 7.4, Monocytes (%) (Auto) 6.7, Eosinophils (%) (Auto) 0.0, Basophils (%) (Auto) 0.1, Neutrophils # (Auto) 8.46, Lymphocytes # (Auto) 0.73, Monocytes # (Auto) 0.66, Eosinophils # (Auto) 0.00, Basophils # (Auto) 0.01 06/24/17 17:08 Test 06/24/17 17:08 06/24/17 18:15 06/24/17 19:32 06/25/17 07:59 White Blood Count 9.88 K/uL (4.8-10.8) Red Blood Count 4.05 M/uL (4.2-5.4) Hemoglobin 12.6 g/dL (12.0-16.0) Hematocrit 38.7 % (37-47) Mean Corpuscular Volume 95.6 fL (80-100) Mean Corpuscular Hemoglobin 31.1 pg (25-34) Mean Corpuscular Hemoglobin Concent 32.6 g/dl (32-36) Platelet Count 168 K/uL (130-400) Mean Platelet Volume 10.1 fL (7.4-10.4) Neutrophils (%) (Auto) 85.6 % Lymphocytes (%) (Auto) 7.4 % Monocytes (%) (Auto) 6.7 % Eosinophils (%) (Auto) 0.0 % Basophils (%) (Auto) 0.1 % Neutrophils # (Auto) 8.46 K/uL (1.4-6.5) Lymphocytes # (Auto) 0.73 K/uL (1.2-3.4) Monocytes # (Auto) 0.66 K/uL (0.11-0.59) Eosinophils # (Auto) 0.00 K/uL (0-0.5) Basophils # (Auto) 0.01 K/uL (0-0.2) RDW Standard Deviation 50.9 fL (36.4-46.3) RDW Coefficient of Variation 14.6 % (11.5-14.5) Immature Granulocyte % (Auto) 0.2 % Immature Granulocyte # (Auto) 0.02 K/uL (0.00-0.02) Red Blood Cell Morphology Unremarkable Erythrocyte Sedimentation Rate 41 mm/hr (0-21) Prothrombin Time 11.4 SECONDS (9.0-12.0) Prothromb Time International Ratio 1.1 (0.9-1.1) Activated Partial Thromboplast Time 25.4 SECONDS (21.0-31.0) Partial Thromboplastin Ratio 1.0 Anion Gap 10.0 mmol/L (3-11) Est Creatinine Clear Calc Drug Dose 37.6 ml/min Estimated GFR () 46.8 Estimated GFR (Non- 40.4 BUN/Creatinine Ratio 26.0 (10-20) Calcium Level 9.6 mg/dl (8.5-10.1) Total Bilirubin 1.3 mg/dl (0.2-1) Aspartate Amino Transf (AST/SGOT) 103 U/L (15-37) Alanine Aminotransferase (ALT/SGPT) 72 U/L (12-78) Alkaline Phosphatase 211 U/L (45-117) Total Creatine Kinase 174 U/L (26-192) Creatine Kinase MB 2.8 ng/ml (0.5-3.6) Creatine Kinase MB Ratio 1.6 (0-3.0) Troponin I < 0.015 ng/ml (0-0.045) C-Reactive Protein 4.24 mg/dl (0-0.29) Pro-B-Type Natriuretic Peptide 271 pg/ml (0-900) Total Protein 8.5 gm/dl (6.4-8.2) Albumin 3.7 gm/dl (3.4-5.0) Globulin 4.8 gm/dl (2.5-4.0) Albumin/Globulin Ratio 0.8 (0.9-2) Lipase 93 U/L (73-393) Thyroid Stimulating Hormone (TSH) 0.488 uIu/ml (0.300-4.500) Thyroxine (T4) 9.7 mcg/dl (4.5-10.9) Prolactin 22.93 ng/mL Urine Color YELLOW Urine Appearance CLEAR (CLEAR) Urine pH 5.0 (4.5-7.5) Urine Specific [place] 1.019 (1.000-1.030) Urine Protein NEG (NEG) Urine Glucose (UA) NEG (NEG) Urine Ketones NEG (NEG) Urine Occult Blood NEG (NEG) Urine Nitrite NEG (NEG) Urine Bilirubin NEG (NEG) Urine Urobilinogen NEG (NEG) Urine Leukocyte Esterase NEG (NEG) Urine WBC (Auto) 0 /hpf (0-5) Urine RBC (Auto) 0-4 /hpf (0-4) Urine Hyaline Casts (Auto) 0 /lpf (0-5) Urine Epithelial Cells (Auto) 0-5 /lpf (0-5) Urine Bacteria (Auto) NEG (NEG) Venous Blood pH 7.45 (7.36-7.41) Venous Blood Partial Pressure CO2 38 mmHg (38.0-50.0) Venous Blood Partial Pressure O2 32 mmHg Venous Blood HCO3 25 mmol/L Venous Blood Oxygen Saturation < 60.0 % Venous Blood Base Excess 1.5 mEq/L Bedside Glucose 196 mg/dl (70-90) Test 06/25/17 08:26 Date/Time Source Procedure Growth Status 06/25/17 02:30 Nasal MRSA DNA Surveillance Screen - Final Specimen Negative for MRSA by DNA Probe Complete Imaging As noted above in HPI Impression This is a 71-year-old female who presents with acute encephalopathy. Certainly with reports of recent fevers infection could cause acute encephalopathy. Caution with recent addition of Keppra as Keppra can also cause encephalopathy in the elderly. Plan Recommend getting previous workup from [facility]. Specifically looking for MRI report, LP results, neurology notes, and EEG reports. At this time I cannot say whether the patient does or does not have focal seizures as I do not have any evidence for such a diagnosis, and it does not appear that her recent diagnosis was definite. In addition it is not clear whether she needs Keppra, and Keppra could cause encephalopathy in the elderly. Hospital is not an ideal place for dementia evaluation in the setting of acute illnesses. Recommend that any concerns for dementia should be evaluated as an outpatient, when the patient is at her normal baseline. I have ordered an EEG for today for further evaluation of possible seizure etiology for acute encephalopathy. I have also ordered a B12 level and ammonia level to complete general encephalopathy workup. Infection and general metabolic evaluation and workup per hospitalist team. Patient will need some sort of neurology follow-up as an outpatient for cognitive evaluation and question of seizures. Uncertain if she already has follow-up established with a neurologist or not. If not we would be happy to see her in our clinic. Thank you for allowing me to participate in this patient's care. If there is any questions or concerns, feel free to call/page me.
--- NOTE | 2017-06-25 11:14 | EEG Procedure Note ---
EEG Procedure Note Date of Service Jun 25, 2017. Start / End Times Start Time: 10:33 AM End Time: 10:53 AM Referring Physician Ann-Marie Stone History This is a 71-year-old female who presents with acute encephalopathy. EEG for further evaluation of possible seizure etiology Home Medication List Scheduled Atorvastatin (Lipitor), 40 MG PO DAILY Cefpodoxime Proxetil (Cefpodoxime Proxetil), 100 MG PO Q12 Cholecalciferol (Vitamin D), 2,000 INTER.UNIT PO DAILY Clopidogrel (Plavix), 75 MG PO DAILY Cyanocobalamin (Vitamin B12), 1,000 MCG PO DAILY Docusate Sodium (Docusate Sodium), 100 MG PO BID Fluticasone Propionate (Nasal) (Flonase Allergy Relief), 2 SPRAYS MANDIE DAILY Gabapentin (Neurontin), 200 MG PO Q8 Insulin Aspart (Novolog), 1 DOSE SC ACHS Latanoprost (Xalatan 0.005% Oph Tri), 1 DROP OPB HS Levetiracetam (Keppra), 500 MG PO Q12 Levothyroxine Sodium (Levothyroxine Sodium), 50 MCG PO DAILY Magnesium Oxide (Mag-Ox), 400 MG PO BIDM Metformin Hcl (Glucophage), 1,000 MG PO BIDM Olanzapine (Zyprexa), 20 MG PO HS Pantoprazole (Protonix), 40 MG PO DAILY Pioglitazone (Actos), 45 MG PO DAILY Potassium Chloride (Potassium Chloride Er), 10 MEQ PO QAM Scheduled PRN Acetaminophen (Tylenol), 500 MG PO Q4H PRN for UNDECIDED Bisacodyl (Bisacodyl), 1 SUPP OR DAILY PRN for Constipation Furosemide (Lasix), 20 MG PO DAILY PRN for PRN Magnesium Hydroxide (Milk Of Magnesia), 30 ML PO DAILY PRN for Constipation Nitroglycerin (Nitrostat), 0.4 MG UT UD PRN for Chest Pain Polyethylene Glycol 3350 (Miralax), 17 GM PO DAILY PRN for Constipation Senna/Docusate Sod (Senokot S), 1 TAB PO DAILY PRN for Constipation Sodium Phosphate/Biphosphate (Fleet Enema), 1 EA OR DAILY PRN for Constipation [Ocular Lubricant], 1 DROP OPB TID PRN for Dry Eyes Inpatient Medication List Current Inpatient Medications Medications (Trade) Dose Ordered Sig/Oneyda Route Start Time Stop Time Status Last Admin Dose Admin Atorvastatin Calcium (Lipitor Tab) 40 mg DAILY PO 06/25/17 09:00 07/25/17 08:59 06/25/17 07:59 40 MG Clopidogrel Bisulfate (plAVix TAB) 75 mg DAILY PO 06/25/17 09:00 07/25/17 08:59 06/25/17 07:59 75 MG Docusate Sodium (coLACE CAP) 100 mg BID PRN PO 06/24/17 21:00 07/24/17 20:59 Fluticasone Propionate (Flonase Nasal [place]) 2 sprays DAILY MANDIE 06/25/17 09:00 07/25/17 08:59 06/25/17 08:00 2 SPRAYS Gabapentin (Neurontin Cap) 200 mg Q8 PO 06/24/17 22:00 07/24/17 21:59 06/25/17 01:31 200 MG Insulin Aspart (novoLOG ASPART) ACHS SC 06/24/17 21:00 07/24/17 20:59 06/25/17 08:08 6 UNITS Latanoprost (Xalatan Oph Soln) 2 drops HS OPB 06/24/17 21:00 07/24/17 20:59 06/25/17 01:32 2 DROPS Levetiracetam (Keppra Tab) 500 mg Q12 PO 06/24/17 21:00 07/24/17 20:59 06/25/17 07:57 500 MG Levothyroxine Sodium (Synthroid Tab) 50 mcg DAILYBB PO 06/25/17 06:30 07/25/17 06:59 Olanzapine (Zyprexa Tab) 20 mg HS PO 06/24/17 21:00 07/24/17 20:59 06/25/17 01:31 20 MG Heparin Sodium (Porcine) (Heparin Sq 5000 Unit/0.5ml) 5,000 unit Q8H SQ 06/24/17 22:00 07/24/17 21:59 06/25/17 06:17 5,000 UNIT Acetaminophen (Tylenol Tab) 650 mg Q4H PRN PO 06/24/17 21:00 07/24/17 20:59 06/25/17 01:27 650 MG Azithromycin 500 mg/Dextrose 255 ml @ 125 mls/hr Q24H IV 06/25/17 02:00 07/02/17 01:59 06/25/17 01:43 125 MLS/HR Ceftriaxone Sodium 1 gm/ Dextrose 50 ml @ 100 mls/hr Q24H IV 06/25/17 01:00 07/02/17 00:59 06/25/17 01:13 100 MLS/HR Glucose (Glucose 40% Gel) 15-30 GRAMS 15 GRAMS... UD PRN PO 06/24/17 22:45 07/24/17 22:44 Glucose (Glucose Chew Tab) 4-8 Tablets 4 Tabl... UD PRN PO 06/24/17 22:45 07/24/17 22:44 Dextrose (Dextrose 50% 50ML Syringe) 25-50ML OF 50% DW IV FOR... UD PRN IV 06/24/17 22:45 07/24/17 22:44 Glucagon (Glucagon Inj) 1 mg UD PRN SQ 06/24/17 22:45 07/24/17 22:44 Description This is a 21 electrode EEG with a single channel dedicated to limited EKG. The electrodes were placed in accordance with the International 10-20 system. At the start of this recording the patient was reported to be unresponsive. Background was poorly organized with no anterior to posterior gradient. Background was composed of symmetric moderate amplitude predominantly 6-7 Hz theta frequencies with intermittent generalized delta slowing. There was occasional bifrontal predominant triphasic waves. Hyperventilation was not done. Photic stimulation at various frequencies did not produce any abnormalities. There was no state changes or sleep transients. Interpretation This is an abnormal routine EEG secondary to moderate background disorganization and slowing. There was no electrographic seizures or epileptiform discharges. Clinical Correlation This EEG indicates a moderate encephalopathy of nonspecific etiology. Occasional appearance of triphasic waves may suggest a metabolic encephalopathy.
[2017-06-25] MEDS ORDERED: POT PHOSPHATE MONOBASIC W/ SOD TAB PO ONE (11:40)
[2017-06-25 12:35] LABS: INFLUENZA A PCR Neg for Influ A (NEG); INFLUENZA B PCR Neg for Influ B (NEG)
[2017-06-25] MEDS ORDERED: VANCOMYCIN HCL 125 MG/2.5ML SOLN PO SCH (13:00)
[2017-06-25] MEDS ORDERED: RASPBERRY SYRUP 5 ML UDP PO SCH (13:00)
[2017-06-25] MEDS ORDERED: INSULIN GLARGINE SOLOSTAR 100 UNITS/ML 3 ML PEN SC ONE (13:18)
--- NOTE | 2017-06-25 13:39 | Hospitalist Progress Note ---
Hospitalist Progress Note Date of Service Jun 25, 2017. Subjective Pt evaluation today including: conversation w/ patient, conversation w/ family (son at bedside ), physical exam, lab review, review of studies, review of inpatient medication list Voiding: incontinence Patient resting in bed. Alert/oriented x3. Denies any complaints. Eating and drinking OK. Patient denies any fever, chills, sweats, lightheadedness, dizziness, vision changes, CP, palpitations, edema, SOB, wheezing, cough, abdominal pain, nausea, vomiting, diarrhea, urinary symptoms, melena, numbness/tingling, weakness, muscle/joint pain, anxiety/depression, active bleeding, or new skin discoloration/changes. Per RN, no acute issues. Alert/oriented. Ate all of breakfast. Medications Current Inpatient Medications Medications (Trade) Dose Ordered Sig/Oneyda Route Start Time Stop Time Status Last Admin Dose Admin Atorvastatin Calcium (Lipitor Tab) 40 mg DAILY PO 06/25/17 09:00 07/25/17 08:59 06/25/17 07:59 40 MG Clopidogrel Bisulfate (plAVix TAB) 75 mg DAILY PO 06/25/17 09:00 07/25/17 08:59 06/25/17 07:59 75 MG Docusate Sodium (coLACE CAP) 100 mg BID PRN PO 06/24/17 21:00 07/24/17 20:59 Fluticasone Propionate (Flonase Nasal [place]) 2 sprays DAILY MANDIE 06/25/17 09:00 07/25/17 08:59 06/25/17 08:00 2 SPRAYS Insulin Aspart (novoLOG ASPART) ACHS SC 06/24/17 21:00 07/24/17 20:59 06/25/17 12:24 6 UNITS Latanoprost (Xalatan Oph Soln) 2 drops HS OPB 06/24/17 21:00 07/24/17 20:59 06/25/17 01:32 2 DROPS Levetiracetam (Keppra Tab) 500 mg Q12 PO 06/24/17 21:00 07/24/17 20:59 06/25/17 07:57 500 MG Levothyroxine Sodium (Synthroid Tab) 50 mcg DAILYBB PO 06/25/17 06:30 07/25/17 06:59 Olanzapine (Zyprexa Tab) 20 mg HS PO 06/24/17 21:00 07/24/17 20:59 06/25/17 01:31 20 MG Heparin Sodium (Porcine) (Heparin Sq 5000 Unit/0.5ml) 5,000 unit Q8H SQ 06/24/17 22:00 07/24/17 21:59 06/25/17 06:17 5,000 UNIT Acetaminophen (Tylenol Tab) 650 mg Q4H PRN PO 06/24/17 21:00 07/24/17 20:59 06/25/17 01:27 650 MG Azithromycin 500 mg/Dextrose 255 ml @ 125 mls/hr Q24H IV 06/25/17 02:00 07/02/17 01:59 06/25/17 01:43 125 MLS/HR Ceftriaxone Sodium 1 gm/ Dextrose 50 ml @ 100 mls/hr Q24H IV 06/25/17 01:00 07/02/17 00:59 06/25/17 01:13 100 MLS/HR Glucose (Glucose 40% Gel) 15-30 GRAMS 15 GRAMS... UD PRN PO 06/24/17 22:45 07/24/17 22:44 Glucose (Glucose Chew Tab) 4-8 Tablets 4 Tabl... UD PRN PO 06/24/17 22:45 07/24/17 22:44 Dextrose (Dextrose 50% 50ML Syringe) 25-50ML OF 50% DW IV FOR... UD PRN IV 06/24/17 22:45 07/24/17 22:44 Glucagon (Glucagon Inj) 1 mg UD PRN SQ 06/24/17 22:45 07/24/17 22:44 Metronidazole (Flagyl Tab) 500 mg TID PO 06/25/17 14:00 07/09/17 13:59 Gabapentin (Neurontin Cap) 300 mg BID PO 06/25/17 21:00 07/25/17 20:59 Objective Vital Signs Date Time Temp Pulse Resp B/P (MAP) Pulse Ox O2 Delivery O2 Flow Rate FiO2 06/25/17 12:00 Nasal Cannula 2.0 06/25/17 11:44 36.8 115 19 122/80 (94) 94 Nasal Cannula 2.5 06/25/17 08:00 Nasal Cannula 2.0 06/25/17 06:34 37.2 113 18 106/70 (82) 93 Nasal Cannula 2.0 06/25/17 05:13 36.6 101 20 104/71 (82) 92 06/25/17 04:00 Nasal Cannula 2.0 06/25/17 02:23 37.3 06/25/17 00:45 38.3 110 18 127/81 94 Nasal Cannula 2.0 06/24/17 23:32 38.0 104 19 117/63 94 06/24/17 22:00 104 19 117/63 94 Nasal Cannula 2.0 06/24/17 21:15 108 21 114/64 94 Nasal Cannula 2.0 06/24/17 20:54 110 20 148/97 94 Nasal Cannula 2.0 06/24/17 19:17 116 23 148/97 90 Room Air 06/24/17 17:53 119 06/24/17 17:42 92 Room Air 06/24/17 17:30 38.0 120 18 132/75 94 Room Air Physical Exam General Appearance: no apparent distress, + obese Eyes: normal inspection, PERRL ENT: hearing grossly normal Neck: supple Respiratory/Chest: lungs clear, no respiratory distress, no accessory muscle use Cardiovascular: regular rate, rhythm Abdomen: normal bowel sounds, non tender, soft Extremities: no pedal edema, no calf tenderness Neurologic/Psychiatric: alert, oriented x 3 Skin: normal color, warm/dry, no rash Laboratory Results Last 24 Hours Test 06/24/17 17:08 06/24/17 18:15 06/24/17 19:32 06/25/17 00:33 White Blood Count 9.88 K/uL Red Blood Count 4.05 M/uL Hemoglobin 12.6 g/dL Hematocrit 38.7 % Mean Corpuscular Volume 95.6 fL Mean Corpuscular Hemoglobin 31.1 pg Mean Corpuscular Hemoglobin Concent 32.6 g/dl Platelet Count 168 K/uL Mean Platelet Volume 10.1 fL Neutrophils (%) (Auto) 85.6 % Lymphocytes (%) (Auto) 7.4 % Monocytes (%) (Auto) 6.7 % Eosinophils (%) (Auto) 0.0 % Basophils (%) (Auto) 0.1 % Neutrophils # (Auto) 8.46 K/uL Lymphocytes # (Auto) 0.73 K/uL Monocytes # (Auto) 0.66 K/uL Eosinophils # (Auto) 0.00 K/uL Basophils # (Auto) 0.01 K/uL RDW Standard Deviation 50.9 fL RDW Coefficient of Variation 14.6 % Immature Granulocyte % (Auto) 0.2 % Immature Granulocyte # (Auto) 0.02 K/uL Red Blood Cell Morphology Unremarkable Erythrocyte Sedimentation Rate 41 mm/hr Prothrombin Time 11.4 SECONDS Prothromb Time International Ratio 1.1 Activated Partial Thromboplast Time 25.4 SECONDS Partial Thromboplastin Ratio 1.0 Sodium Level 137 mmol/L Potassium Level 3.6 mmol/L Chloride Level 104 mmol/L Carbon Dioxide Level 23 mmol/L Anion Gap 10.0 mmol/L Blood Urea Nitrogen 35 mg/dl Creatinine 1.33 mg/dl Est Creatinine Clear Calc Drug Dose 37.6 ml/min Estimated GFR () 46.8 Estimated GFR (Non- 40.4 BUN/Creatinine Ratio 26.0 Random Glucose 169 mg/dl Calcium Level 9.6 mg/dl Phosphorus Level 2.4 mg/dl Magnesium Level 1.7 mg/dl Total Bilirubin 1.3 mg/dl Aspartate Amino Transf (AST/SGOT) 103 U/L Alanine Aminotransferase (ALT/SGPT) 72 U/L Alkaline Phosphatase 211 U/L Total Creatine Kinase 174 U/L Creatine Kinase MB 2.8 ng/ml Creatine Kinase MB Ratio 1.6 Troponin I < 0.015 ng/ml C-Reactive Protein 4.24 mg/dl Pro-B-Type Natriuretic Peptide 271 pg/ml Total Protein 8.5 gm/dl Albumin 3.7 gm/dl Globulin 4.8 gm/dl Albumin/Globulin Ratio 0.8 Lipase 93 U/L Thyroid Stimulating Hormone (TSH) 0.488 uIu/ml Thyroxine (T4) 9.7 mcg/dl Prolactin 22.93 ng/mL Urine Color YELLOW Urine Appearance CLEAR Urine pH 5.0 Urine Specific [place] 1.019 Urine Protein NEG Urine Glucose (UA) NEG Urine Ketones NEG Urine Occult Blood NEG Urine Nitrite NEG Urine Bilirubin NEG Urine Urobilinogen NEG Urine Leukocyte Esterase NEG Urine WBC (Auto) 0 /hpf Urine RBC (Auto) 0-4 /hpf Urine Hyaline Casts (Auto) 0 /lpf Urine Epithelial Cells (Auto) 0-5 /lpf Urine Bacteria (Auto) NEG Venous Blood pH 7.45 Venous Blood Partial Pressure CO2 38 mmHg Venous Blood Partial Pressure O2 32 mmHg Venous Blood HCO3 25 mmol/L Venous Blood Oxygen Saturation < 60.0 % Venous Blood Base Excess 1.5 mEq/L Bedside Glucose 197 mg/dl Test 06/25/17 06:24 06/25/17 07:59 06/25/17 08:26 06/25/17 09:32 Bedside Glucose 196 mg/dl 196 mg/dl Phosphorus Level 2.4 mg/dl Magnesium Level 2.1 mg/dl Ammonia 27.5 umol/L Vitamin B12 Level > 2000 pg/mL Test 06/25/17 11:37 Bedside Glucose 202 mg/dl Influenza Type A (RT-PCR) Neg for Influ A Influenza Type B (RT-PCR) Neg for Influ B Assessment and Plan 71 y/o C female with history of DM, CAD, Hypothyroidism, possible Dementia at baseline, newly diagnosed seizure disorder presenting with worsening mental status. Patient had a prolonged hospital stay at [facility] with thorough workup for CVA which was negative. She was diagnosed with complex partial seizures, possible dementia and started on Keppra at that time. She returns to the hospital today with worsening mental status, sleepiness and confusion. Metabolic encephalopathy, likely secondary to sepsis from c.diff infection: - Admitted to [facility] for cardiac monitoring- no acute events - MRSA swab negative; UA negative; influenza negative; BCx pending - Head CT unremarkable for acute findings - No evidence on acute process on CXR- started on IV Rocephin and Azithromycin at admission for ?PNA- c.diff positive, discontinue abx - Start Flagyl TID- started on 06/25 - Contact precautions Hypophosphatemia: Replace w/ 2 tablets Phosphate supplement today- follow phosphorus and replace PRN Newly diagnosed seizures vs TIA: - Keppra 500 mg BID - EEG w/out evidence of seizure activity - Neurology consulted, appreciate recommendations - Requesting records from [facility] Bipolar disorder: - Continue Zyprexa qHS - Son states patient was given this diagnosis after her son and voluntary admitted herself. He would like her reevaluated. Does not follow w/ psychiatry outpatient -- Discussed treating current infection/AMS, then can consider psychiatry consultation T2DM w/ neuropathy: - Hold Metformin and Actos while inpatient - Hyperglycemia- will start Lantus 10 u SQ daily while inpatient and adjust PRN - BSG ACHS and ISS - Gabapentin- per son, on 300 mg BID and 200 mg in the afternoon- requesting decreasing dosage -- Records from admission report 200 mg TID- will continue this dose and request outpatient PCP records before adjusting CAD s/p [place] with stent x3, HLD: Continue Lipitor, Plavix Hypothyroidism- TSH WNL: Continue Synthroid Insomnia: Son states patient is on 3 sleeping aid medications- requesting mother receive NONE- none listed at admission- requesting to obtain PCP records GERD: Hold Protonix w/ c. diff infection DVT prophylaxis: Heparin SQ TID Code status: LEVEL I, FULL Dispo: Discharge uncertain- PT/OT and CM consulted SonFredy is [facility]- [phone]
[2017-06-25] MEDS: METRONIDAZOLE 500 MG TAB PO SCH ×2 (14:33→20:46)
[2017-06-25] MEDS ORDERED: GABAPENTIN 300 MG CAP PO SCH (21:00)
[2017-06-26] VITALS (9 sets, daily range): BP systolic 94–117; BP diastolic 62–76; PULSE 73–97; TEMP 36.7–37.6; O2SAT 91–98
[2017-06-26] MEDS: ACETAMINOPHEN 325 MG TAB PO PRN ×2 (05:18→17:55)
[2017-06-26] MEDS: LEVOTHYROXINE 50 MCG TAB PO SCH (06:11)
[2017-06-26] MEDS: HEPARIN SOD 5000 UNIT/0.5 ML CARP SQ SCH ×3 (06:19→21:22)
[2017-06-26 06:23] LABS: HEMATOCRIT 29.8 % (37-47); MEAN CELL VOLUME 94.3 fL (80-100); MEAN CORPUSCULAR HEMOGLOBIN 31.6 pg (25-34); MEAN CORPUSCULAR HGB CONC 33.6 g/dl (32-36); MEAN PLATELET VOLUME 9.6 fL (7.4-10.4); PLATELET COUNT 123 K/uL (130-400); RED CELL DISTRIBUTION WIDTH CV 14.7 % (11.5-14.5); RED CELL DISTRIBUTION WIDTH SD 50.8 fL (36.4-46.3); WHITE BLOOD COUNT 7.19 K/uL (4.8-10.8)
[2017-06-26 07:10] LABS: ALBUMIN 2.6 gm/dl (3.4-5.0); CALCIUM 8.6 mg/dl (8.5-10.1); CREATININE 0.97 mg/dl (0.60-1.20); PHOSPHORUS 2.3 mg/dl (2.5-4.9); POTASSIUM 3.1 mmol/L (3.5-5.1); TOTAL PROTEIN 6.8 gm/dl (6.4-8.2)
[2017-06-26] MEDS ORDERED: POTASSIUM CHLORIDE 10 MEQ TABCR PO STA (08:20)
[2017-06-26] MEDS: GABAPENTIN 100 MG CAP PO SCH ×3 (08:46→21:25)
[2017-06-26] MEDS: LEVETIRACETAM 500 MG TAB PO SCH ×2 (08:46→21:24)
[2017-06-26] MEDS: METRONIDAZOLE 500 MG TAB PO SCH ×3 (08:46→21:25)
[2017-06-26] MEDS: CLOPIDOGREL BISULFATE 75 MG TAB PO SCH (08:46)
[2017-06-26] MEDS: ATORVASTATIN 40 MG TAB PO SCH (08:47)
[2017-06-26] MEDS: FLUTICASONE PROPIONATE NA SPR 16 GM BTL NAE SCH (08:48)
[2017-06-26] MEDS: INSULIN ASPART 100 UNITS/ML 3 ML PEN SC SCH ×4 (08:55→21:22)
[2017-06-26] MEDS: INSULIN GLARGINE SOLOSTAR 100 UNITS/ML 3 ML PEN SC SCH (08:56)
--- NOTE | 2017-06-26 14:24 | Progress Note ---
Subjective Date of Service: Jun 26, 2017. Subjective Pt evaluation today including: conversation w/ patient, conversation w/ family , chart review, lab review, review of studies, conversation w/ consultant nurse, review of inpatient medication list Feeling obvious better, tolerate diet, feeling stronger, moving upper and lower extremities, yesterday was having 7 time diarrhea today has been slowing down, denied dizziness denies fever and chills Problem List Medical Problems: (1) Altered mental status Status: Acute (2) Fever Status: Acute (3) Seizure Status: Acute (4) Weakness Status: Acute Review of Systems Constitutional: + weakness, + fatigue, No fever, No chills, No sweats, No weight loss, No problem reported Eyes: No worsening of vision, No eye pain, No redness, No discharge, No diplopia ENT: No hearing loss, No unusual epistaxis, No nasal symptoms, No sore throat, No tinnitus, No dental problems, No trouble swallowing Respiratory: No cough, No sputum, No wheezing, No shortness of breath, No dyspnea on exertion, No dyspnea at rest, No hemoptysis Cardiac: + edema (Trace edema), No chest pain, No orthopnea, No PND, No claudication, No palpitations Abdomen: No pain, No nausea, No vomiting, No diarrhea, No constipation Musculoskeletal: No joint pain, No muscle pain, No swelling, No calf pain Female : No dysuria, No urinary frequency, No hematuria, No incontinence, No abnormal vaginal bleeding, No vaginal discharge Neurologic: No memory loss, No paralysis, No weakness, No numbness/tingling, No vertigo, No balance problems Psychiatric: No depression symptoms, No anhedonism, No anxiety, No insomnia, No substance abuse Heme: No abnormal bleeding/bruising, No clotting problems, No swollen lymph nodes, No night sweats Endo: No fatigue, No excessive thirst, No excessive urination Skin: No rash, No itch, No new/changing skin lesions, No color change, No bleeding Objective Vital Signs Date Time Temp Pulse Resp B/P (MAP) Pulse Ox O2 Delivery O2 Flow Rate FiO2 06/26/17 11:47 36.9 86 20 100/64 (76) 92 06/26/17 08:00 91 Nasal Cannula 2.0 06/26/17 07:17 37.1 87 20 94/62 (73) 91 06/26/17 06:16 36.9 06/26/17 04:45 37.6 97 20 105/69 (81) 93 2.0 06/26/17 04:00 Nasal Cannula 2.0 06/26/17 00:28 37.4 91 20 105/64 (78) 95 2.0 06/26/17 00:00 Nasal Cannula 2.0 06/25/17 20:15 37.7 108 16 118/76 (90) 93 Nasal Cannula 2.0 06/25/17 20:00 Nasal Cannula 2.0 06/25/17 16:00 Nasal Cannula 2.0 06/25/17 14:41 38.0 116 15 113/75 (88) 92 Nasal Cannula 2.0 Physical Exam General Appearance: WD/WN, no apparent distress, + obese Eyes: normal inspection, PERRL, EOMI, sclerae normal ENT: normal ENT inspection, hearing grossly normal, pharynx normal Neck: supple, no adenopathy, thyroid normal, no JVD, no carotid bruits, trachea midline Respiratory/Chest: chest non-tender, normal breath sounds, no respiratory distress, no accessory muscle use, + decreased breath sounds Cardiovascular: regular rate, rhythm, no edema, no gallop, no JVD, no murmur Abdomen: normal bowel sounds, non tender, soft, no organomegaly, no pulsatile mass Extremities: normal range of motion, non-tender, normal inspection, no pedal edema, no calf tenderness, normal capillary refill, pelvis stable Neurologic/Psychiatric: excel vba developer II-XII nml as tested, no motor/sensory deficits, alert, normal mood/affect, oriented x 3, + pertinent finding (Muscle strength bilateral lower extremities 5 out of 5, lifting individual lower extremities without any difficulty) Skin: normal color, warm/dry, no rash Lymphatic: no adenopathy Laboratory Results Last 24 Hours Test 06/25/17 16:25 06/25/17 20:42 06/25/17 21:55 06/26/17 06:00 Bedside Glucose 196 mg/dl 196 mg/dl White Blood Count 7.19 K/uL Red Blood Count 3.16 M/uL Hemoglobin 10.0 g/dL Hematocrit 29.8 % Mean Corpuscular Volume 94.3 fL Mean Corpuscular Hemoglobin 31.6 pg Mean Corpuscular Hemoglobin Concent 33.6 g/dl RDW Standard Deviation 50.8 fL RDW Coefficient of Variation 14.7 % Platelet Count 123 K/uL Mean Platelet Volume 9.6 fL Sodium Level 138 mmol/L Potassium Level 3.1 mmol/L Chloride Level 106 mmol/L Carbon Dioxide Level 23 mmol/L Anion Gap 9.0 mmol/L Blood Urea Nitrogen 28 mg/dl Creatinine 0.97 mg/dl Est Creatinine Clear Calc Drug Dose 52.2 ml/min Estimated GFR () 68.6 Estimated GFR (Non- 59.2 BUN/Creatinine Ratio 29.3 Random Glucose 148 mg/dl Calcium Level 8.6 mg/dl Phosphorus Level 2.3 mg/dl Magnesium Level 2.0 mg/dl Total Bilirubin 0.8 mg/dl Direct Bilirubin 0.2 mg/dl Aspartate Amino Transf (AST/SGOT) 73 U/L Alanine Aminotransferase (ALT/SGPT) 76 U/L Alkaline Phosphatase 143 U/L Total Protein 6.8 gm/dl Albumin 2.6 gm/dl Globulin 4.2 gm/dl Albumin/Globulin Ratio 0.6 Test 06/26/17 08:22 06/26/17 11:45 Bedside Glucose 145 mg/dl 161 mg/dl Assessment and Plan 71 y/o C female admitted on June 24, 2017 because of worsening mental status. Per report patient had a prolonged hospital stay at [facility] for possible CVA but was negative, she was diagnosed with complex partial seizures, positive history of DM, CAD, Hypothyroidism, possible Dementia at baseline, newly diagnosed seizure disorder Metabolic encephalopathy, likely secondary to sepsis from c.diff infection: Resolved Hypophosphatemia: Resolved Newly diagnosed seizures vs TIA: Stable Bipolar disorder: Stable C. difficile diarrhea, is on metronidazole p.o., Start Flagyl TID- started on 06/25, Contact precautions T2DM w/ neuropathy: CAD s/p [place] with stent x3, Hypothyroidism- TSH WNL: Continue Keppra 500 mg BID, Neurology consulted, appreciate recommendations, Requesting records from [facility] med surg With present of the patient's son in bedside, discussed with patient and patient 's son about conditions and care plan, answered all the questions, patient's son concerned about patient's psychiatry medications, I advised him to talk to PCP about this, referral to psychiatry if needed, we may help to have patient's appointment with PCP setting up upon discharge, Son, Fredy Dawson is POA- [phone] Continued [facility] stay due to: home environment unsafe for pt Discharge planning: uncertain
[2017-06-26] MEDS ORDERED: ARTIFICIAL TEARS OP SOLN OPB PRN (14:30)
[2017-06-26] MEDS ORDERED: POLYETHYLENE (MIRALAX) 17 GM PACK PO PRN (14:30)
[2017-06-26] MEDS ORDERED: CEFPODOXIME PROXETIL 100 MG PO SCH (21:00)
[2017-06-26] MEDS: LATANOPROST 0.005% OP SOLN 2.5 ML BTL OPB SCH (21:26)
[2017-06-26] MEDS: OLANZAPINE 10 MG TAB PO SCH (21:27)
[2017-06-27 04:00] VITALS: BP 93/59; PULSE 65; TEMP 36.4; O2SAT 95
[2017-06-27] MEDS: LEVOTHYROXINE 50 MCG TAB PO SCH (06:03)
[2017-06-27] MEDS: HEPARIN SOD 5000 UNIT/0.5 ML CARP SQ SCH ×3 (06:04→20:54)
[2017-06-27 07:28] LABS: HEMATOCRIT 30.4 % (37-47); MEAN CELL VOLUME 95.6 fL (80-100); MEAN CORPUSCULAR HEMOGLOBIN 31.4 pg (25-34); MEAN CORPUSCULAR HGB CONC 32.9 g/dl (32-36); MEAN PLATELET VOLUME 9.9 fL (7.4-10.4); PLATELET COUNT 125 K/uL (130-400); RED CELL DISTRIBUTION WIDTH CV 14.3 % (11.5-14.5); RED CELL DISTRIBUTION WIDTH SD 49.9 fL (36.4-46.3); WHITE BLOOD COUNT 3.41 K/uL (4.8-10.8)
[2017-06-27] MEDS: CHOLECALCIFEROL 1000 INTER.UNIT TAB PO SCH (08:20)
[2017-06-27] MEDS: CYANOCOBALAMIN 500 MCG TAB (VIT B-12) PO SCH (08:21)
[2017-06-27] MEDS: GABAPENTIN 100 MG CAP PO SCH ×3 (08:21→20:47)
[2017-06-27] MEDS: METRONIDAZOLE 500 MG TAB PO SCH ×3 (08:21→20:54)
[2017-06-27] MEDS: LEVETIRACETAM 500 MG TAB PO SCH ×2 (08:22→20:55)
[2017-06-27] MEDS: FLUTICASONE PROPIONATE NA SPR 16 GM BTL NAE SCH (08:22)
[2017-06-27] MEDS: ATORVASTATIN 40 MG TAB PO SCH (08:22)
[2017-06-27] MEDS: CLOPIDOGREL BISULFATE 75 MG TAB PO SCH (08:22)
[2017-06-27] MEDS: INSULIN ASPART 100 UNITS/ML 3 ML PEN SC SCH ×4 (08:24→20:53)
[2017-06-27] MEDS: INSULIN GLARGINE SOLOSTAR 100 UNITS/ML 3 ML PEN SC SCH (08:25)
--- NOTE | 2017-06-27 15:26 | Progress Note ---
Subjective Date of Service: Jun 27, 2017. Subjective Pt evaluation today including: conversation w/ patient, conversation w/ family , physical exam, chart review, lab review, review of studies, conversation w/ risk and insurance consultant, review of inpatient medication list Continue feeling well, diarrhea 2 so far, has ays been slowing down, denies fever, tolerate diet, was up to the chair eating breakfast, Problem List Medical Problems: (1) Altered mental status Status: Acute (2) Fever Status: Acute (3) Seizure Status: Acute (4) Weakness Status: Acute Review of Systems Constitutional: No fever, No chills, No sweats, No weight loss, No weakness, No fatigue, No problem reported Eyes: No worsening of vision, No eye pain, No redness, No discharge, No diplopia ENT: No hearing loss, No unusual epistaxis, No nasal symptoms, No sore throat, No tinnitus, No dental problems, No trouble swallowing Respiratory: No cough, No sputum, No wheezing, No shortness of breath, No dyspnea on exertion, No dyspnea at rest, No hemoptysis Cardiac: No chest pain, No orthopnea, No PND, No edema, No claudication, No palpitations Abdomen: + diarrhea, No pain, No nausea, No vomiting, No constipation Musculoskeletal: No joint pain, No muscle pain, No swelling, No calf pain Female : No dysuria, No urinary frequency, No hematuria, No incontinence, No abnormal vaginal bleeding, No vaginal discharge Neurologic: No memory loss, No paralysis, No weakness, No numbness/tingling, No vertigo, No balance problems Psychiatric: No depression symptoms, No anhedonism, No anxiety, No insomnia, No substance abuse Heme: No abnormal bleeding/bruising, No clotting problems, No swollen lymph nodes, No night sweats Endo: No fatigue, No excessive thirst, No excessive urination Skin: No rash, No itch, No new/changing skin lesions, No color change, No bleeding Objective Vital Signs Date Time Temp Pulse Resp B/P (MAP) Pulse Ox O2 Delivery O2 Flow Rate FiO2 06/27/17 12:00 Room Air 06/27/17 08:00 Nasal Cannula 2.0 06/27/17 04:00 Nasal Cannula 2.0 06/27/17 04:00 36.4 65 18 93/59 (70) 95 2.0 06/27/17 00:00 Nasal Cannula 2.0 3/31/18 23:21 36.7 73 18 102/66 (78) 97 2.0 06/26/17 20:00 Nasal Cannula 2.0 06/26/17 19:16 36.9 88 20 117/76 (90) 93 Nasal Cannula 2.0 06/26/17 16:00 Nasal Cannula 2.0 06/26/17 15:29 37.0 92 20 99/68 (78) 98 Physical Exam General Appearance: WD/WN, no apparent distress, + pertinent finding (Pleasant conversational, looks better) Eyes: normal inspection, PERRL, EOMI, sclerae normal ENT: normal ENT inspection, hearing grossly normal, pharynx normal Neck: supple, no adenopathy, thyroid normal, no JVD, no carotid bruits, trachea midline Respiratory/Chest: chest non-tender, normal breath sounds, no respiratory distress, no accessory muscle use, + decreased breath sounds Cardiovascular: regular rate, rhythm, no edema, no gallop, no JVD, no murmur Abdomen: normal bowel sounds, non tender, soft, no organomegaly, no pulsatile mass Extremities: normal range of motion, non-tender, normal inspection, no pedal edema, no calf tenderness, normal capillary refill, pelvis stable Neurologic/Psychiatric: gusset ripper II-XII nml as tested, no motor/sensory deficits, alert, normal mood/affect, oriented x 3 Skin: normal color, warm/dry, no rash Lymphatic: no adenopathy Laboratory Results Last 24 Hours Test 06/26/17 15:52 06/26/17 20:33 06/27/17 07:14 06/27/17 07:19 Bedside Glucose 144 mg/dl 165 mg/dl 124 mg/dl White Blood Count 3.41 K/uL Red Blood Count 3.18 M/uL Hemoglobin 10.0 g/dL Hematocrit 30.4 % Mean Corpuscular Volume 95.6 fL Mean Corpuscular Hemoglobin 31.4 pg Mean Corpuscular Hemoglobin Concent 32.9 g/dl RDW Standard Deviation 49.9 fL RDW Coefficient of Variation 14.3 % Platelet Count 125 K/uL Mean Platelet Volume 9.9 fL Test 06/27/17 11:47 Bedside Glucose 192 mg/dl Assessment and Plan 71 y/o C female admitted on June 24, 2017 because of worsening mental status., Was found has C. difficile diarrhea after admission Per report patient had a prolonged hospital stay at [facility] for possible CVA but was negative, she was diagnosed with complex partial seizures, positive history of DM, CAD, Hypothyroidism, possible Dementia at baseline, newly diagnosed seizure disorder Metabolic encephalopathy, likely secondary to sepsis from c.diff infection: Resolved Hypophosphatemia: Resolved Newly diagnosed seizures vs TIA: Stable Bipolar disorder: Stable C. difficile diarrhea, is on metronidazole p.o., stable improving Start Flagyl TID- started on 06/25, Contact precautions T2DM w/ neuropathy: Blood glucose fairly controlled CAD s/p [place] with stent x3, stable continue home medication Hypothyroidism- TSH WNL: Stable continue current medication Continue Keppra 500 mg BID, Neurology consulted, appreciate recommendations, patient's son concerned about patient's psychiatry medications, I advised him to talk to PCP about this, referral to psychiatry if needed, we may help to have patient's appointment with PCP setting up upon discharge, SonFredy is A- [phone] Continued [facility] stay due to: home environment unsafe for pt Discharge planning: uncertain
[2017-06-27 15:48] VITALS: BP 113/71; PULSE 66; TEMP 36.4; O2SAT 94
[2017-06-27 18:58] VITALS: BP 127/68; PULSE 88; TEMP 36.5; O2SAT 95
[2017-06-27 20:06] VITALS: O2SAT 95
[2017-06-27] MEDS: OLANZAPINE 10 MG TAB PO SCH (20:48)
[2017-06-27] MEDS: LATANOPROST 0.005% OP SOLN 2.5 ML BTL OPB SCH (20:48)
[2017-06-27 22:46] VITALS: BP 119/75; PULSE 75; TEMP 37; O2SAT 92
[2017-06-28] VITALS (7 sets, daily range): BP systolic 102–124; BP diastolic 63–75; PULSE 74–85; TEMP 36.3–36.8; O2SAT 91–96
[2017-06-28] MEDS: LEVOTHYROXINE 50 MCG TAB PO SCH (05:51)
[2017-06-28] MEDS: HEPARIN SOD 5000 UNIT/0.5 ML CARP SQ SCH ×3 (05:51→21:02)
[2017-06-28 06:39] LABS: BASO % 0.4 %; BASO ABS # 0.01 K/uL (0-0.2); EOS % 1.3 %; EOS ABS # 0.03 K/uL (0-0.5); HEMATOCRIT 28.1 % (37-47); HEMOGLOBIN 9.2 g/dL (12.0-16.0); IG# 0.02 K/uL (0.00-0.02); LYMPH % 39.2 %; LYMPH ABS # 0.93 K/uL (1.2-3.4); MEAN CELL VOLUME 94.6 fL (80-100); MEAN CORPUSCULAR HGB CONC 32.7 g/dl (32-36); MEAN PLATELET VOLUME 9.9 fL (7.4-10.4); MONO ABS # 0.19 K/uL (0.11-0.59); NEUT % 50.3 %; NEUT ABS # 1.19 K/uL (1.4-6.5); PLATELET COUNT 152 K/uL (130-400); RED CELL DISTRIBUTION WIDTH CV 14.1 % (11.5-14.5); RED CELL DISTRIBUTION WIDTH SD 48.9 fL (36.4-46.3); WHITE BLOOD COUNT 2.37 K/uL (4.8-10.8)
[2017-06-28 07:05] LABS: CALCIUM 8.8 mg/dl (8.5-10.1); CREATININE 0.77 mg/dl (0.60-1.20)
[2017-06-28] MEDS: CHOLECALCIFEROL 1000 INTER.UNIT TAB PO SCH (08:01)
[2017-06-28] MEDS: ATORVASTATIN 40 MG TAB PO SCH (08:01)
[2017-06-28] MEDS: CLOPIDOGREL BISULFATE 75 MG TAB PO SCH (08:02)
[2017-06-28] MEDS: CYANOCOBALAMIN 500 MCG TAB (VIT B-12) PO SCH (08:02)
[2017-06-28] MEDS: METRONIDAZOLE 500 MG TAB PO SCH ×3 (08:03→20:55)
[2017-06-28] MEDS: GABAPENTIN 100 MG CAP PO SCH ×3 (08:03→20:56)
[2017-06-28] MEDS: LEVETIRACETAM 500 MG TAB PO SCH ×2 (08:03→20:56)
[2017-06-28] MEDS: FLUTICASONE PROPIONATE NA SPR 16 GM BTL NAE SCH (08:03)
[2017-06-28] MEDS: INSULIN ASPART 100 UNITS/ML 3 ML PEN SC SCH ×4 (08:08→21:02)
[2017-06-28] MEDS: INSULIN GLARGINE SOLOSTAR 100 UNITS/ML 3 ML PEN SC SCH (08:09)
[2017-06-28] MEDS ORDERED: POTASSIUM CHLORIDE 10 MEQ TABCR PO ONE (08:30)
[2017-06-28] MEDS: POTASSIUM CHLR 10 MEQ / WTR 10 MEQ in PREMIXED WATER 100 ML IV SCH ×2 (08:34→11:25)
--- NOTE | 2017-06-28 09:19 | Clinical Documentation Query ---
CLINICAL DOCUMENTATION QUERY 71 yo female admitted with acute encephalopathy. Initial creatinine level = 1.33 and trended down to 0.77. In your clinical opinion is this patient being managed for: ( x) possible Acute kidney failure, resolved ( ) Not Agree ( ) Other explanation of clinical findings (Please Explain) ( ) Unable to determine (Please Define) ( ) Need to Discuss The medical record reflects the following clinical findings, treatment, and risk factors. Clinical Indicators: As above Treatment: IV hydration, serial PRPs Risk Factors: Sepsis, dehydration Please clarify and document your clinical opinion in the progress notes and discharge summary. Terms such as "probable", "suspected", "likely", "questionable", "possible", or "still to be ruled out" are acceptable. IF IN AGREEMENT, YOU MUST DOCUMENT ABOVE DIAGNOSTIC STATEMENT IN DAILY PROGRESS NOTES AND DISCHARGE SUMMARY. This document is not part of the patient's record. Thank You, Allison Macias RN [phone]
--- NOTE | 2017-06-28 14:45 | Progress Note ---
Subjective Date of Service: Jun 28, 2017. Subjective Pt evaluation today including: conversation w/ patient, conversation w/ family , physical exam, chart review, lab review, review of studies, review of inpatient medication list Feeling good, the same as yesterday, eating lunch, pleasant and smiling, however report burning sensations from IV infusion of potassium \3-4 times diarrhea so far Problem List Medical Problems: (1) Altered mental status Status: Acute (2) Fever Status: Acute (3) Seizure Status: Acute (4) Weakness Status: Acute Review of Systems Constitutional: No fever, No chills, No sweats, No weight loss, No weakness, No fatigue, No problem reported Eyes: No worsening of vision, No eye pain, No redness, No discharge, No diplopia ENT: No hearing loss, No unusual epistaxis, No nasal symptoms, No sore throat, No tinnitus, No dental problems, No trouble swallowing Respiratory: No cough, No sputum, No wheezing, No shortness of breath, No dyspnea on exertion, No dyspnea at rest, No hemoptysis Cardiac: No chest pain, No orthopnea, No PND, No edema, No claudication, No palpitations Abdomen: + diarrhea, No pain, No nausea, No vomiting, No constipation Musculoskeletal: No joint pain, No muscle pain, No swelling, No calf pain Female : No dysuria, No urinary frequency, No hematuria, No incontinence, No abnormal vaginal bleeding, No vaginal discharge Neurologic: No memory loss, No paralysis, No weakness, No numbness/tingling, No vertigo, No balance problems Psychiatric: No depression symptoms, No anhedonism, No anxiety, No insomnia, No substance abuse Heme: No abnormal bleeding/bruising, No clotting problems, No swollen lymph nodes, No night sweats Endo: No fatigue, No excessive thirst, No excessive urination Skin: No rash, No itch, No new/changing skin lesions, No color change, No bleeding Objective Vital Signs Date Time Temp Pulse Resp B/P (MAP) Pulse Ox O2 Delivery O2 Flow Rate FiO2 06/28/17 11:54 36.7 77 18 106/70 (82) 93 Room Air 06/28/17 08:00 Room Air 06/28/17 07:17 36.8 74 18 109/72 (84) 93 Room Air 06/28/17 04:11 95 Room Air 06/28/17 00:05 95 Room Air 06/27/17 22:46 37.0 75 18 119/75 (90) 92 Room Air 06/27/17 20:06 95 Room Air 06/27/17 18:58 36.5 88 20 127/68 (87) 95 06/27/17 16:00 Nasal Cannula 2.0 06/27/17 15:48 36.4 66 18 113/71 (85) 94 Room Air Physical Exam General Appearance: WD/WN, no apparent distress Eyes: normal inspection, PERRL, EOMI, sclerae normal ENT: normal ENT inspection, hearing grossly normal, pharynx normal Neck: supple, no adenopathy, thyroid normal, no JVD, no carotid bruits, trachea midline Respiratory/Chest: chest non-tender, lungs clear, normal breath sounds, no respiratory distress, no accessory muscle use Cardiovascular: regular rate, rhythm, no edema, no gallop, no JVD, no murmur Abdomen: normal bowel sounds, non tender, soft, no organomegaly, no pulsatile mass Extremities: normal range of motion, non-tender, normal inspection, no pedal edema, no calf tenderness, normal capillary refill, pelvis stable 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, no motor/sensory deficits, alert, normal mood/affect, oriented x 3 Skin: normal color, warm/dry, no rash Lymphatic: no adenopathy Laboratory Results Last 24 Hours Test 06/27/17 16:47 06/27/17 20:16 06/28/17 06:10 06/28/17 11:33 Bedside Glucose 155 mg/dl 184 mg/dl 210 mg/dl White Blood Count 2.37 K/uL Red Blood Count 2.97 M/uL Hemoglobin 9.2 g/dL Hematocrit 28.1 % Mean Corpuscular Volume 94.6 fL Mean Corpuscular Hemoglobin 31.0 pg Mean Corpuscular Hemoglobin Concent 32.7 g/dl Platelet Count 152 K/uL Mean Platelet Volume 9.9 fL Neutrophils (%) (Auto) 50.3 % Lymphocytes (%) (Auto) 39.2 % Monocytes (%) (Auto) 8.0 % Eosinophils (%) (Auto) 1.3 % Basophils (%) (Auto) 0.4 % Neutrophils # (Auto) 1.19 K/uL Lymphocytes # (Auto) 0.93 K/uL Monocytes # (Auto) 0.19 K/uL Eosinophils # (Auto) 0.03 K/uL Basophils # (Auto) 0.01 K/uL RDW Standard Deviation 48.9 fL RDW Coefficient of Variation 14.1 % Immature Granulocyte % (Auto) 0.8 % Immature Granulocyte # (Auto) 0.02 K/uL Sodium Level 143 mmol/L Potassium Level 3.0 mmol/L Chloride Level 112 mmol/L Carbon Dioxide Level 21 mmol/L Anion Gap 10.0 mmol/L Blood Urea Nitrogen 27 mg/dl Creatinine 0.77 mg/dl Est Creatinine Clear Calc Drug Dose 65.2 ml/min Estimated GFR () 90.7 Estimated GFR (Non- 78.2 BUN/Creatinine Ratio 35.4 Random Glucose 135 mg/dl Calcium Level 8.8 mg/dl Magnesium Level 1.8 mg/dl Assessment and Plan 71 y/o C female admitted on June 24, 2017 because of worsening mental status., Was found has C. difficile diarrhea after admission, stable improved Per report patient had a prolonged hospital stay at [facility] for possible CVA but was negative, she was diagnosed with complex partial seizures, positive history of DM, CAD, Hypothyroidism, possible Dementia at baseline, newly diagnosed seizure disorder Metabolic encephalopathy, likely secondary to sepsis from c.diff infection: Resolved Hypophosphatemia: Resolved Newly diagnosed seizures vs TIA: Stable Bipolar disorder: Stable C. difficile diarrhea, is on metronidazole p.o., stable improving Start Flagyl TID- started on 06/25, Contact precautions T2DM w/ neuropathy: Blood glucose fairly controlled CAD s/p [place] with stent x3, stable continue home medication Hypothyroidism- TSH WNL: Stable continue current medication Continue Keppra 500 mg BID, Neurology consulted, appreciate recommendations, patient's son concerned about patient's psychiatry medications, I advised him to talk to PCP about this, referral to psychiatry if needed, we may help to have patient's appointment with PCP setting up upon discharge, Plan to back to [facility] rehab, not able to discharge today because of severe hypokalemia potassium 3, Possible able to discharge tomorrow Son, Fredy Dawson is POA- [phone] Continued [facility] stay due to: home environment unsafe for pt Discharge planning: rehab hospital
[2017-06-28] MEDS: OLANZAPINE 10 MG TAB PO SCH (20:56)
[2017-06-28] MEDS: LATANOPROST 0.005% OP SOLN 2.5 ML BTL OPB SCH (21:01)
[2017-06-29] MEDS: LEVOTHYROXINE 50 MCG TAB PO SCH (06:08)
[2017-06-29] MEDS: HEPARIN SOD 5000 UNIT/0.5 ML CARP SQ SCH ×3 (06:11→21:31)
[2017-06-29 07:01] VITALS: BP 102/65; PULSE 72; TEMP 37; O2SAT 92
[2017-06-29 07:11] LABS: CALCIUM 8.8 mg/dl (8.5-10.1); CREATININE 0.83 mg/dl (0.60-1.20); POTASSIUM 3.4 mmol/L (3.5-5.1)
[2017-06-29 07:12] LABS: PHOSPHORUS 3.1 mg/dl (2.5-4.9)
[2017-06-29 08:00] VITALS: O2SAT 92
[2017-06-29] MEDS: FLUTICASONE PROPIONATE NA SPR 16 GM BTL NAE SCH (08:16)
[2017-06-29] MEDS: ATORVASTATIN 40 MG TAB PO SCH (08:16)
[2017-06-29] MEDS: CLOPIDOGREL BISULFATE 75 MG TAB PO SCH (08:16)
[2017-06-29] MEDS: CHOLECALCIFEROL 1000 INTER.UNIT TAB PO SCH (08:16)
[2017-06-29] MEDS: CYANOCOBALAMIN 500 MCG TAB (VIT B-12) PO SCH (08:17)
[2017-06-29] MEDS: GABAPENTIN 100 MG CAP PO SCH ×3 (08:17→21:26)
[2017-06-29] MEDS: METRONIDAZOLE 500 MG TAB PO SCH ×3 (08:17→21:29)
[2017-06-29] MEDS: LEVETIRACETAM 500 MG TAB PO SCH ×2 (08:17→21:29)
[2017-06-29] MEDS: INSULIN ASPART 100 UNITS/ML 3 ML PEN SC SCH ×4 (08:22→21:32)
[2017-06-29] MEDS: INSULIN GLARGINE SOLOSTAR 100 UNITS/ML 3 ML PEN SC SCH (08:22)
--- NOTE | 2017-06-29 09:22 | Progress Note ---
Subjective Date of Service: Jun 29, 2017. Subjective pt is complaining of hemorrhoidal pain is here with C diff and having increased diarrhea to make matters worse, otherwise still with some lower potassium levels Problem List Medical Problems: (1) Altered mental status Status: Acute (2) Fever Status: Acute (3) Seizure Status: Acute (4) Weakness Status: Acute Review of Systems Constitutional: + weakness, + fatigue, No fever, No chills Respiratory: No cough, No shortness of breath Cardiac: No chest pain, No edema Abdomen: + pain, + diarrhea, No nausea, No vomiting Musculoskeletal: No joint pain, No muscle pain Female : No dysuria, No urinary frequency Objective Vital Signs Date Time Temp Pulse Resp B/P (MAP) Pulse Ox O2 Delivery O2 Flow Rate FiO2 06/29/17 08:00 92 Room Air 06/29/17 07:01 37.0 72 18 102/65 (77) 92 Room Air 06/29/17 00:00 Room Air 06/28/17 23:14 36.6 85 18 113/70 (84) 91 Room Air 06/28/17 20:00 Room Air 06/28/17 19:15 36.3 83 20 102/63 (76) 95 Room Air 06/28/17 16:00 Room Air 06/28/17 15:06 36.4 80 18 124/75 (91) 96 Room Air 06/28/17 12:00 Room Air 06/28/17 11:54 36.7 77 18 106/70 (82) 93 Room Air Physical Exam General Appearance: WD/WN, + mild distress Eyes: normal inspection, sclerae normal Neck: supple, no JVD Respiratory/Chest: chest non-tender, lungs clear, normal breath sounds Cardiovascular: regular rate, rhythm, no murmur Abdomen: soft, + guarding, + tenderness Extremities: no pedal edema, no calf tenderness Neurologic/Psychiatric: no motor/sensory deficits, oriented x 3 Laboratory Results Last 24 Hours Test 06/28/17 11:33 06/28/17 16:21 06/28/17 20:54 06/29/17 06:33 Bedside Glucose 210 mg/dl 118 mg/dl 204 mg/dl Sodium Level 144 mmol/L Potassium Level 3.4 mmol/L Chloride Level 113 mmol/L Carbon Dioxide Level 23 mmol/L Anion Gap 8.0 mmol/L Blood Urea Nitrogen 25 mg/dl Creatinine 0.83 mg/dl Est Creatinine Clear Calc Drug Dose 60.4 ml/min Estimated GFR () 82.8 Estimated GFR (Non- 71.4 BUN/Creatinine Ratio 30.0 Random Glucose 156 mg/dl Calcium Level 8.8 mg/dl Phosphorus Level 3.1 mg/dl Magnesium Level 1.8 mg/dl Test 06/29/17 07:34 Bedside Glucose 145 mg/dl Assessment and Plan 71 y/o f admitted on June 24, 2017 because of worsening mental status., Was found has C. difficile diarrhea after admission Per report patient had a prolonged hospital stay at [facility] for possible CVA but was negative, she was diagnosed with complex partial seizures, positive history of DM, CAD, Hypothyroidism, possible Dementia at baseline, newly diagnosed seizure disorder Metabolic encephalopathy, secondary to sepsis from c.diff infection: Resolved Hypophosphatemia: Resolved Newly diagnosed seizures vs TIA: Stable on Keppra 500 mg BID, Neurology consulted, appreciate recommendations Bipolar disorder: Stable C. difficile diarrhea, is on metronidazole p.o started on 06/25, Contact precautions, will orders prep h for hemorrhoids but watch for jessie rectal abscess etc T2DM w/ neuropathy: Blood glucose fairly controlled CAD s/p [place] with stent x3, stable continue home medication Hypothyroidism- TSH WNL: Stable continue current medication patient's son, Fredy Dawson is POA- [phone], concerned about patient's psychiatry medications, I advised him to talk to PCP about this, referral to psychiatry if needed, we may help to have patient's appointment with PCP setting up upon discharge, Plan to back to [facility] rehab, Continued [facility] stay due to: home environment unsafe for pt Discharge planning: rehab hospital
[2017-06-29] MEDS: POTASSIUM CHLORIDE 20 MEQ TABCR PO SCH ×2 (10:02→21:29)
[2017-06-29 15:43] VITALS: BP 123/77; PULSE 80; TEMP 36.6; O2SAT 92
[2017-06-29 16:08] VITALS: O2SAT 92
[2017-06-29] MEDS ORDERED: ANUSOL SUPP 1 EA PR PRN (19:15)
[2017-06-29] MEDS: LATANOPROST 0.005% OP SOLN 2.5 ML BTL OPB SCH (21:26)
[2017-06-29] MEDS: OLANZAPINE 10 MG TAB PO SCH (21:29)
[2017-06-29 23:49] VITALS: BP 104/66; PULSE 78; TEMP 36.7; O2SAT 91
[2017-06-30] MEDS: LEVOTHYROXINE 50 MCG TAB PO SCH (05:49)
[2017-06-30] MEDS: HEPARIN SOD 5000 UNIT/0.5 ML CARP SQ SCH ×2 (05:49→14:00)
[2017-06-30 06:47] LABS: HEMATOCRIT 28.8 % (37-47); HEMOGLOBIN 9.8 g/dL (12.0-16.0); MEAN CELL VOLUME 94.1 fL (80-100); MEAN PLATELET VOLUME 9.4 fL (7.4-10.4); PLATELET COUNT 174 K/uL (130-400); RED CELL DISTRIBUTION WIDTH CV 14.8 % (11.5-14.5); RED CELL DISTRIBUTION WIDTH SD 50.6 fL (36.4-46.3); WHITE BLOOD COUNT 2.87 K/uL (4.8-10.8)
[2017-06-30 07:38] VITALS: BP 111/69; PULSE 76; TEMP 37.1; O2SAT 90
[2017-06-30] MEDS: CHOLECALCIFEROL 1000 INTER.UNIT TAB PO SCH (07:58)
[2017-06-30] MEDS: LEVETIRACETAM 500 MG TAB PO SCH (07:59)
[2017-06-30] MEDS: FLUTICASONE PROPIONATE NA SPR 16 GM BTL NAE SCH (07:59)
[2017-06-30] MEDS: ATORVASTATIN 40 MG TAB PO SCH (07:59)
[2017-06-30] MEDS: CYANOCOBALAMIN 500 MCG TAB (VIT B-12) PO SCH (07:59)
[2017-06-30] MEDS: GABAPENTIN 100 MG CAP PO SCH ×2 (07:59→14:07)
[2017-06-30] MEDS: POTASSIUM CHLORIDE 20 MEQ TABCR PO SCH (07:59)
[2017-06-30] MEDS: CLOPIDOGREL BISULFATE 75 MG TAB PO SCH (07:59)
[2017-06-30] MEDS: METRONIDAZOLE 500 MG TAB PO SCH ×2 (07:59→14:07)
[2017-06-30 08:00] VITALS: O2SAT 90
[2017-06-30] MEDS: INSULIN GLARGINE SOLOSTAR 100 UNITS/ML 3 ML PEN SC SCH (08:03)
[2017-06-30] MEDS: INSULIN ASPART 100 UNITS/ML 3 ML PEN SC SCH ×2 (08:04→12:13)
[2017-06-30] MEDS ORDERED: INSDGIPEN SC (08:43)
[2017-06-30] MEDS ORDERED: MTR500 PO (08:43)
--- NOTE | 2017-06-30 08:46 | Discharge Instructions ---
Discharge Instructions Date of Service Jun 30, 2017. Admission Reason for Admission: Altered Mental Status Discharge Discharge Diagnosis / Problem: c diff colitis and sepsis Discharge Goals Goal(s): Diagnostic testing, Therapeutic intervention Activity Recommendations Activity Level: Assistance Required Therapies: Physical Therapy, Occupational Therapy . Additional Information Patient informed of condition: Yes Advance Directives: Yes DNR: No Level of Care: Acute Rehab Communicable Disease: Yes Prognosis: Stable Chang Catheter: No Instructions / Follow-Up Instructions / Follow-Up 71 y/o f admitted on June 24, 2017 because of worsening mental status., Was found has C. difficile diarrhea after admission Per report patient had a prolonged hospital stay at [facility] for possible CVA but was negative, she was diagnosed with complex partial seizures, positive history of DM, CAD, Hypothyroidism, possible Dementia at baseline, newly diagnosed seizure disorder Metabolic encephalopathy, secondary to sepsis from c.diff infection: Resolved Hypophosphatemia: Resolved Newly diagnosed seizures vs TIA: Stable on Keppra 500 mg BID, Neurology consulted, recommend continued medication Bipolar disorder: Stable C. difficile diarrhea, is on metronidazole p.o started on 06/25, Contact precautions, will orders prep h for hemorrhoids but watch for jessie rectal abscess etc T2DM w/ neuropathy: Blood glucose fairly controlled, given controlled environement will have basal bolus while in acut rehab, consider returning to metformin and actos upon discharge from rehab CAD s/p [place] with stent x3, stable continue home medication Hypothyroidism- TSH WNL: Stable continue current medication patient's son, Fredy Dawson is POA- [phone], concerned about patient's psychiatry medications, I advised him to talk to PCP about this, referral to psychiatry if needed, we may help to have patient's appointment with PCP setting up upon discharge, Plan to back to [facility] rehab, Current Hospital Diet Patient's current hospital diet: Diabetes Type 2 Diet Discharge Diet Recommended Diet: Diabetes Type 2 Diet Pending Studies Studies pending at discharge: no Medical Emergencies . Who to Call and When: Medical Emergencies: If at any time you feel your situation is an emergency, please call 911 immediately. . Non-Emergent Contact Non-Emergency issues call your: Primary Care Provider Call Non-Emergent contact if: temperature is above 101, your pain is unusual for you . . "Provider Documentation" section prepared by Aristeo Andrews. . Core Measure Problem Core Measures: None
[2017-06-30 11:32] VITALS: BP 111/69; PULSE 76; TEMP 37.1; O2SAT 90
== END 2017-06-30 15:03 | disposition home health service (06) | DRG 871 ==
LOC: EDBD 17:22 → C.EDA 17:23 → C.MED 21:59 → UNDOADMIN 21:59 → ENRESERV 23:19
PROVIDERS: ADMIT Internal Medicine; ATTEND Internal Medicine
DX: A41.4 Sepsis due to anaerobes (principal); G93.41 Metabolic encephalopathy; A04.72 Enterocolitis due to Clostridium difficile, not specified as recurrent; N17.9 Acute kidney failure, unspecified; E83.39 Other disorders of phosphorus metabolism; G40.909 Epilepsy, unspecified, not intractable, without status epilepticus; E11.40 Type 2 diabetes mellitus with diabetic neuropathy, unspecified; I25.10 Atherosclerotic heart disease of native coronary artery without angina pectoris; E78.5 Hyperlipidemia, unspecified; E03.9 Hypothyroidism, unspecified; F31.9 Bipolar disorder, unspecified; K21.9 Gastro-esophageal reflux disease without esophagitis; G47.00 Insomnia, unspecified; I25.2 Old myocardial infarction; Z95.5 Presence of coronary angioplasty implant and graft; Z90.49 Acquired absence of other specified parts of digestive tract; Z90.710 Acquired absence of both cervix and uterus; Z79.02 Long term (current) use of antithrombotics/antiplatelets; Z79.2 Long term (current) use of antibiotics; Z79.4 Long term (current) use of insulin; Z79.899 Other long term (current) drug therapy; Z83.3 Family history of diabetes mellitus; Z82.49 Family history of ischemic heart disease and other diseases of the circulatory system; Z81.8 Family history of other mental and behavioral disorders